=== PATIENT | male | born 1970 | race Caucasian/White ===

== ENCOUNTER 2019-04-22 04:27 | Inpatient (IN) | payer BC ==
[2019-04-22 06:11] LABS: Troponin I 0.235 ng/mL (< 0.028)
[2019-04-22] MEDS ORDERED: Aspirin 81 mg Enteric Coated Tablet PO SCH (09:00)
[2019-04-22 10:30] LABS: INR-International Normal Ratio 1.1; PTT 32.8 SEC (22.9-36.1); Prothrombin Time 14.5 SEC (12.0-14.7)
[2019-04-22] MEDS ORDERED: Ondansetron ODT 4 MG TAB PO PRN (11:11)
[2019-04-22] MEDS ORDERED: Ondansetron PF 4 MG/2 ML Vial IVP PRN (11:11)
--- NOTE | 2019-04-22 11:11 | HP ---
PRIMARY CARE PHYSICIAN: Viktoriya Perez DO CHIEF COMPLAINT: Chest pain. HISTORY OF PRESENT ILLNESS: Mr. Stone is a pleasant 48-year-old man with a past medical history of hypertension and heart murmur, who had presented to an outside [place] ER earlier this morning, after he experienced chest pain and palpitations that had started around 1 a.m. this morning and had woke him about of a deep sleep. He states that the pain was most severe in the substernal area and had not changed with movement or activity. He was seen in the [place] ER and was found to be in atrial flutter with RVR and rates in the 120s to 130s. Therefore, he was given two doses of IV metoprolol 5 mg for a total of 10 mg, aspirin 324 mg, and nitroglycerin sublingual 0.4 mg. He states that once he had received this regimen, he had a rapid pain relief and his heart rate improved to about 100 and then converted to a sinus rhythm with PVCs. He was later transferred to [facility], where he had denied any fever, chills, any headache, blurred vision, dizziness, any chest pain, palpitation, shortness of breath, abdominal pain, nausea, or vomiting. He had remained in sinus rhythm and even transitioned to sinus bradycardia with rates in the 50s. He had otherwise denied any further symptoms at that time. His CHADS-VASc score was zero. Therefore, he was not started on any anticoagulation at this time. With his recent history of a heart murmur, an echocardiogram was ordered and pending at this time. His portable chest x-ray was found to be unremarkable. His heart enzymes were also found to be trending up and his latest 0.530; however, the patient remains asymptomatic at this time. REVIEW OF SYSTEMS: All other systems reviewed and found to be negative unless mentioned in HPI. PAST MEDICAL HISTORY: Heart murmur and hypertension; however, not on any home medications. PAST SURGICAL HISTORY: Endoscopy. PSYCHIATRIC HISTORY: None. SOCIAL HISTORY: The patient drinks 3 to 5 days a week, 1 to 2 drinks per day; however, denies any illicit drug use or tobacco use. KNOWN ALLERGIES: No known drug allergies. CURRENT HOME MEDICATIONS: None. PHYSICAL EXAMINATION: VITAL SIGNS: BP 127/90, pulse 52, respirations 18, temperature 98.4 degrees, and O2 saturation 96% on room air. GENERAL: The patient is awake, alert, and oriented x3. He is currently lying comfortably in bed and in no acute distress at this time. HEENT: Atraumatic and normocephalic. Pupils are round and reactive to light. Extraocular muscles intact. Moist mucous membranes noted. NECK: Soft and supple. Trachea midline. CARDIOVASCULAR: Positive S1 and S2. Regular rate and rhythm. A 2/6 murmur auscultated. RESPIRATORY: Clear to auscultation bilaterally. No wheezes, rales, or rhonchi. ABDOMEN: Soft and nontender. Bowel sounds present. MUSCULOSKELETAL: Moves all extremities equal. Pedal and radial pulses 2+ bilaterally. No edema noted. NEUROLOGIC: Cranial nerves 2 through 12 grossly intact. No focal deficits noted. Speech intact and normal. Gait not assessed. Strength 5+ bilaterally. SKIN: Warm, dry, and intact. No rashes. No ulceration noted. PSYCHIATRIC: Good mood and affect. LABORATORY DATA: WBC 8.0, RBC 4.44, hemoglobin 13.8, and platelet 231. Sodium 140, potassium 3.5, anion gap 15, BUN 18, creatinine 1.24, estimated GFR 62, and glucose 143. Creatine kinase 251; CK-MB 3.4; troponin 0.073, 0.235, and 0.530; and BNP 369.4. Urinalysis unremarkable. Urine drug screen, none detectable. DIAGNOSTIC IMAGING: Portable chest x-ray showed no acute cardiopulmonary process. ASSESSMENT AND PLAN: 1. Atrial flutter with rapid ventricular response. The patient converted to sinus rhythm after 2 doses of IV metoprolol 5 mg. He is also asymptomatic at this time. Cardiology Services, Dr. Nick is consulted for further evaluation. He will remain on telemonitoring. 2. Non-ST elevation myocardial infarction. The patient is currently asymptomatic at this time; however, his cardiac enzymes are trending up with the latest 0.530. He was treated with a full dose aspirin and sublingual nitroglycerin. He will also be started on statin therapy, Cardiology Services will be consulted for further evaluation and an echocardiogram is pending at this time. 3. History of heart murmur, currently stable at this time and at baseline. We will await echocardiogram for any further changes. 4. Deep venous thrombosis and gastrointestinal prophylaxis. 5. Code status. Full code. 6. Disposition pending further workup and clinical findings. Job ID: [id number]
[2019-04-22] MEDS ORDERED: Nitroglycerin 0.4 MG TAB 1 EACH PO PRN (11:12)
--- NOTE | 2019-04-22 11:53 | EKG ---
Test Reason : CHEST PAIN Blood Pressure : / mmHG Vent. Rate : 058 BPM Atrial Rate : 058 BPM P-R Int : 198 ms QRS Dur : 102 ms QT Int : 430 ms P-R-T Axes : 025 -35 096 degrees QTc Int : 422 ms Sinus bradycardia with Premature atrial complexes with Abberant conduction Left axis deviation Abnormal QRS-T angle, consider primary T wave abnormality Abnormal ECG Confirmed by ELLIOTT BRUNO M.D. ([id number]), associate entertainment editor MARILIA BOYKIN ([id number]) on 04/22/2019 11:52:37 AM Referred By: Confirmed By:ELLIOTT BRUNO M.D.
[2019-04-22] MEDS ORDERED: Communication Order-Pharmacy FS SCH (14:45)
[2019-04-22 14:53] LABS: CKMB 7.9 ng/mL (0-6.6)
--- NOTE | 2019-04-22 14:58 | CON ---
DATE OF CONSULTATION: REASON FOR CONSULTATION: Elevated troponin and SVT versus A flutter. HISTORY OF PRESENT ILLNESS: Mr. Stone is a 48-year-old gentleman with no past medical history who recently presented with acute onset chest pain. It woke him from sleep. It lasted for over an hour. He had neck and jaw radiation. He presented to the emergency room, where he was found to be in A flutter versus SVT. Once he converted, his symptoms improved. His troponin was elevated at 0.5. He has no previous history of underlying coronary artery disease. He has no previous history of hypertension, diabetes or hyperlipidemia. Based on his history though, he does appear to have severe obstructive sleep apnea. PAST MEDICAL HISTORY: As above. PAST SURGICAL HISTORY: None. SOCIAL HISTORY: Positive alcohol use. ALLERGIES: NONE. HOME MEDICATIONS: None. REVIEW OF SYMPTOMS: Ten-point review of systems is reviewed and as above, otherwise negative. PHYSICAL EXAMINATION: GENERAL: Patient is a pleasant male who is in no acute distress. The patient appears their stated age. He is obese. VITAL SIGNS: Blood pressure 140/78, pulse 55, temperature 97.9. NEUROLOGIC: The patient is alert and oriented x3 with no focal neurologic deficits. HEENT: Sclerae without icterus. Mouth has moist mucous membranes with normal pallor. NECK: No JVD. Carotid upstroke brisk. No bruits bilaterally. LUNGS: Clear to auscultation with unlabored respirations. BACK: No scoliosis or kyphosis. CARDIAC: Regular rate and rhythm with normal S1 and S2. No S3 or S4 noted. No significant rubs, murmurs, thrills, or gallops noted throughout the precordium. PMI is not displaced. There is no parasternal heave. ABDOMEN: Soft, nontender, nondistended. No peritoneal signs present. No hepatosplenomegaly. No abnormal striae. EXTREMITIES: 2+ femoral and 2+ dorsalis pedis pulses. No cyanosis, clubbing, or edema. SKIN: No gross abnormalities. PERTINENT LABORATORY DATA: Troponin 0.5, TSH 0.9, hemoglobin 13.8, hematocrit 41.2. BNP of 369. Creatinine 1.24. Sodium 3.5. EKG: Normal sinus rhythm with nonspecific ST-T wave changes. IMPRESSION: 1. Elevated troponin. 2. Chest pain. 3. Atrial flutter versus supraventricular tachycardia. RECOMMENDATIONS: Mr. Stone's symptoms are strongly suggestive of unstable angina, although symptoms are likely related to recent supraventricular tachycardia. His daughter does state that they do walk 2-4 miles 3 times a week and does get chest pressure noted at the end of their walk. He takes Tums before and after for some relief. Based on his history, I would recommend coronary angio with possible PCI. I discussed procedure in full detail Mr. Stone. His daughter was present during discussion. Risks included, but not limited to the following: I discussed the procedure in full detail with the patient. The risks of the procedure were also discussed. The risks of the procedure include but are not limited to the following: , stroke, PA, need for emergency surgery, loss of limb, bleeding, and infection, as well as a reaction to the dye causing kidney failure and needing long-term dialysis. I also discussed the risks of PCI to include all of the above including coronary dissection and perforation in addition to acute stent thrombosis and restenosis. All questions about the procedure were answered. Given the above, the patient agreed to proceed with coronary angiography and possible PCI. All questions answered. Given the above patient agreed to proceed with the above procedure. We will proceed with drug coated stent if needed, no contraindications, after discussing drug coated versus nondrug coated stent placement. We will also consult with EP for further recommendations. Job ID: [id number]
[2019-04-22] MEDS: Atorvastatin Calcium 40 MG TAB PO SCH (19:56)
[2019-04-22] MEDS: Acetaminophen 325 MG TAB PO PRN (19:56)
[2019-04-23 05:58] LABS: #Eosinphils 0.4 thou/uL (0.0-0.7); #Lymphocytes 1.9 thou/uL (1.20-3.40); #Monocytes 0.6 thou/uL (0.11-0.59); #Neutrophils 4.8 thou/uL (1.40-6.50); %Basophils 0.6 % (0.0-1.0); %Eosinophils 4.7 % (0.0-10.0); %Lymphocytes 24.8 % (21.0-51.0); %Neutrophils 61.9 % (42.0-75.0); Hemoglobin 13.9 g/dL (14.0-18.0); Mean Corpuscular HGB CONC 34.6 g/dL (32.0-36.0); Mean Corpuscular Hemoglobin 32.9 pg (27.0-31.0); Mean Corpuscular Volume 95.1 fL (78.0-98.0); Mean Platelet Volume 7.7 fL (7.4-10.4); Platelet Count 231 thou/uL (130-400); RBC Distribution Width 11.5 % (11.5-14.5); Red Blood Cell (RBC) Count 4.21 mill/uL (4.70-6.10); White Blood Cell (WBC) Count 7.8 thou/uL (4.8-10.8)
[2019-04-23 06:03] LABS: INR-International Normal Ratio 1.1; PTT 30.5 SEC (22.9-36.1); Prothrombin Time 13.7 SEC (12.0-14.7)
[2019-04-23 06:15] LABS: Anion Gap 12 mmol/L (10-20); BUN (Urea Nitrogen) 17 mg/dL (8.9-20.6); Calc. Creatinine Clearance 134 mL/min (70-130); Calcium 8.7 mg/dL (7.8-10.44); Carbon Dioxide 25 mmol/L (22-29); Cardiac Risk 4.6 (Less than 4.5); Chloride 106 mmol/L (98-107); Cholesterol 170 mg/dl (< 200 Desired); Estimated GFR-MDRD 72; Glucose 117 mg/dL (70-105); HDL Cholesterol 37 mg/dL (>60 Neg Risk); LDL Cholesterol, Calculated 107 mg/dL; Potassium 4.2 mmol/L (3.5-5.1); Sodium 139 mmol/L (136-145); Triglycerides 129 mg/dL (Less than 150)
[2019-04-23] MEDS: Aspirin 81 mg Enteric Coated Tablet PO SCH (08:58)
[2019-04-23] MEDS ORDERED: Enoxaparin Sodium 40 MG/0.4 ML SYRINGE SC SCH (09:00)
--- NOTE | 2019-04-23 16:59 | PDOC.HOSPP ---
- Subjective Encounter Date: 04/23/19 Encounter Time: 16:57 Subjective: Patient lying in bed, he reports no complaints, denies chest pain, shortness of breath or abdominal pain. No events over night - Objective Vital Signs & Weight: Vital Signs (12 hours) Temp Pulse Resp BP Pulse Ox 04/23/19 15:52 98.0 F 68 20 142/79 H 95 04/23/19 11:41 98.3 F 65 16 128/75 95 04/23/19 07:52 97.6 F 52 L 20 139/89 95 Weight Weight 256 lb 12.8 oz I&O: 04/22/19 04/23/19 04/24/19 06:59 06:59 06:59 Intake Total 500 Output Total 600 Balance -100 Result Diagrams: 04/23/19 05:45 04/23/19 05:45 Radiology Reviewed by me: Yes ROS - Review of Systems All other systems reviewed; all pertinent +/- noted in HPI/Subj - Medication Medications: Active Medications Generic Name Dose Route Start Last Admin Trade Name Cory PRN Reason Stop Dose Admin Acetaminophen 650 mg 04/22/19 11:11 04/22/19 19:56 Tylenol PO 650 mg Q4H PRN Administration Headache/Fever/Mild Pain (1-3) Aspirin 81 mg 04/23/19 09:00 04/23/19 08:58 Ecotrin PO 81 mg DAILY MERLENE Administration Atorvastatin Calcium 40 mg 04/22/19 21:00 04/22/19 19:56 Lipitor PO 40 mg HS MERLENE Administration Enoxaparin Sodium 40 mg 04/23/19 09:00 04/23/19 08:58 Lovenox SC 04/23/19 21:00 40 mg 0900 MERLENE Administration - Exam NAD, awake alert Eye: PERRL ENT: normocephalic atraumatic, no oropharyngeal lesions Neck: supple Heart: RRR, no gallops, normal peripheral pulses, murmur present Respiratory: CTAB, no wheezes Gastrointestinal: soft, normal bowel sounds Extremities: no cyanosis, no clubbing Skin: normal turgor, no rashes Neurological: CN's grossly intact, no focal deficits Musculoskeletal: normal tone, no muscle wasting Psychiatric: normal affect, A&O x 3 Hosp A/P (1) NSTEMI (non-ST elevated myocardial infarction) Code(s): I21.4 - NON-ST ELEVATION (NSTEMI) MYOCARDIAL INFARCTION Status: Acute (2) Atrial flutter Code(s): I48.92 - UNSPECIFIED ATRIAL FLUTTER Status: Acute - Plan Cardiology following and plan for heart cath 04/24/2019 Continue medical management Patient asymptomatic at this time Possible discharge after heart cath
[2019-04-23] MEDS: Atorvastatin Calcium 40 MG TAB PO SCH (20:05)
[2019-04-23] MEDS: Acetaminophen 325 MG TAB PO PRN (20:07)
[2019-04-24 05:25] LABS: #Basophils 0.1 thou/uL (0.0-0.2); #Eosinphils 0.4 thou/uL (0.0-0.7); #Lymphocytes 1.8 thou/uL (1.20-3.40); #Monocytes 0.6 thou/uL (0.11-0.59); #Neutrophils 3.5 thou/uL (1.40-6.50); %Basophils 1.2 % (0.0-1.0); %Eosinophils 5.9 % (0.0-10.0); %Lymphocytes 28.6 % (21.0-51.0); %Monocytes 9.4 % (0.0-10.0); %Neutrophils 54.9 % (42.0-75.0); Mean Corpuscular HGB CONC 33.8 g/dL (32.0-36.0); Mean Corpuscular Hemoglobin 32.5 pg (27.0-31.0); Mean Corpuscular Volume 96.1 fL (78.0-98.0); Mean Platelet Volume 7.5 fL (7.4-10.4); Platelet Count 211 thou/uL (130-400); RBC Distribution Width 11.4 % (11.5-14.5); White Blood Cell (WBC) Count 6.4 thou/uL (4.8-10.8)
[2019-04-24] MEDS: Aspirin 81 mg Enteric Coated Tablet PO SCH (05:29)
[2019-04-24 05:48] LABS: Anion Gap 11 mmol/L (10-20); BUN (Urea Nitrogen) 17 mg/dL (8.9-20.6); Calc. Creatinine Clearance 144 mL/min (70-130); Calcium 8.3 mg/dL (7.8-10.44); Carbon Dioxide 26 mmol/L (22-29); Chloride 105 mmol/L (98-107); Estimated GFR-MDRD 78; Glucose 112 mg/dL (70-105); Potassium 4.2 mmol/L (3.5-5.1); Sodium 138 mmol/L (136-145)
[2019-04-24] MEDS ORDERED: Sodium Chloride 0.9% 1,000 ML IV SCH ×2 (06:00→10:30)
[2019-04-24] MEDS ORDERED: Lidocaine 1% (PF) 30 ML VIAL ONE ×2 (09:03→09:31)
[2019-04-24] MEDS ORDERED: Midazolam HCl 2 mg/2 ml Vial ONE (09:41)
[2019-04-24] MEDS ORDERED: Fentanyl 100 MCG/2 ML VIAL ONE (09:42)
[2019-04-24] MEDS ORDERED: Nitroglycerin 0.4 MG TAB (25 Tab Bottle) SL PRN (10:19)
[2019-04-24] MEDS ORDERED: Acetaminophen/Codeine 30-300mg Tablet PO PRN ×2 (10:19)
[2019-04-24] MEDS ORDERED: Sodium Chloride 0.9% 200 ML IV PRN (10:19)
--- NOTE | 2019-04-24 14:12 | PDOC.HOSPP ---
- Subjective Encounter Date: 04/24/19 Encounter Time: 13:30 Subjective: Patient seen and examined for new onset A flutter. No CP/SOB. No new complaints. No overnight events - Objective Vital Signs & Weight: Vital Signs (12 hours) Temp Pulse Resp BP BP Pulse Ox 04/24/19 11:38 97.4 F L 60 16 153/94 H 97 04/24/19 10:35 60 18 144/95 H 04/24/19 07:57 97.4 F L 60 15 140/97 H 95 04/24/19 05:30 97.5 F L 62 16 134/94 H 97 Weight Weight 256 lb 12.8 oz I&O: 04/23/19 04/24/19 04/25/19 06:59 06:59 06:59 Intake Total 500 1490 Output Total 600 Balance -100 1490 Result Diagrams: 04/24/19 05:16 04/24/19 05:16 EKG Reviewed by me: Yes (Tele SR) ROS - Review of Systems Respiratory: denies: cough, dry, shortness of breath, hemoptysis, SOB with excertion, pleuritic pain, sputum, wheezing, other Cardiovascular: denies: chest pain, palpitations, orthopnea, paroxysmal noc. dyspnea, edema, light headedness, other Gastrointestinal: denies: nausea, vomitting, abdominal pain, diarrhea, constipation, melena, hematochezia, other - Medication Medications: Active Medications Generic Name Dose Route Start Last Admin Trade Name Freq PRN Reason Stop Dose Admin Acetaminophen 650 mg 04/22/19 11:11 04/23/19 20:07 Tylenol PO 650 mg Q4H PRN Administration Headache/Fever/Mild Pain (1-3) Aspirin 81 mg 04/23/19 09:00 04/24/19 05:29 Ecotrin PO 81 mg DAILY MERLENE Administration Atorvastatin Calcium 40 mg 04/22/19 21:00 04/23/19 20:05 Lipitor PO 40 mg HS MERLENE Administration Sodium Chloride 1,000 mls @ 125 mls/hr 04/24/19 10:30 04/24/19 12:20 Normal Saline 0.9% IV 04/24/19 14:31 Not Given .Q8H MERLENE - Exam NAD Heart: RRR, no rubs, murmur present (4/6 GOGO Aortic area) Respiratory: CTAB, no rales Gastrointestinal: soft, non-tender, normal bowel sounds Extremities: no edema Hosp A/P (1) Atrial flutter with rapid ventricular response Code(s): I48.92 - UNSPECIFIED ATRIAL FLUTTER Status: Acute (2) Severe aortic valve stenosis Code(s): I35.0 - NONRHEUMATIC AORTIC (VALVE) STENOSIS Status: Acute (3) Type 2 myocardial infarction Code(s): I21.A1 - MYOCARDIAL INFARCTION TYPE 2 Status: Acute (4) Obesity (BMI 30-39.9) Code(s): E66.9 - OBESITY, UNSPECIFIED Status: Chronic (5) Normal coronary arteries Code(s): Z03.89 - ENCNTR FOR OBS FOR OTH SUSPECTED DISEASES AND COND RULED OUT Status: Chronic - Plan plan discussed w/ family s/p Cath - normal coronaries Aortic Valve area 0.7 Await Cardiovascular input Cont other meds as below
[2019-04-24 16:58] LABS: CKMB 2.7 ng/mL (0-6.6)
[2019-04-25] MEDS ORDERED: Ketamine 50 MG/ML (10ML VIAL) ONE (07:26)
[2019-04-25] MEDS ORDERED: PROPOFOL 20 ML ONE (07:27)
[2019-04-25] MEDS: Aspirin 81 mg Enteric Coated Tablet PO SCH (08:26)
--- NOTE | 2019-04-25 13:03 | OP ---
DATE OF PROCEDURE: 04/25/2019 PREOPERATIVE DIAGNOSIS: Aortic stenosis. POSTOPERATIVE DIAGNOSIS: Severe aortic stenosis. PROCEDURE PERFORMED: Transesophageal echocardiography. DESCRIPTION OF PROCEDURE: The patient was consented for the procedure. I discussed in full detail with Valarie Stone. Propofol used for conscious sedation. FINDINGS: Aortic valve was well visualized. There was heavy calcification present. The valve appears to be bicuspid. Aortic valve area by planimetry was estimated at 0.7 to 0.9. There appeared to be moderate left ventricular hypertrophy. This appeared concentric. IMPRESSION: Severe aortic stenosis. Job ID: [id number]
--- NOTE | 2019-04-25 14:51 | CT ---
CT CHEST WITH AND WITHOUT CONTRAST CLINICAL INDICATION: Chest pain. Aortic stenosis. COMPARISON: None FINDINGS: Aorta: There are calcifications involving the aortic valve. The thoracic aorta is normal in caliber w ithout evidence of an aortic dissection. Minimal vascular calcifications are seen in the coronary arteries. Lungs: Clear without evidence of consolidation or pleural effusion. Mediastinum: There is no evidence of lymphadenopathy. Thyroid gland: Normal where visualized. Osseous structures: Mild degenerative changes are seen in the spine. There is a mild wedge-shaped the of the T12 vertebral body of indeterminate age. Schmorl's nodes are seen in several thoracic vertebral bodies. Chest wall: No abnormality visualized. Upper abdomen: Within normal limits for phase of imaging. IMPRESSION: 1. Calcifications of the aortic valve. 2. The thoracic aorta is normal in caliber without evidence of an aortic dissection.
--- NOTE | 2019-04-25 15:50 | CON ---
DATE OF CONSULTATION: 04/25/2019 REASON FOR CONSULTATION: Evaluate the patient with aortic stenosis for aortic valve replacement. HISTORY OF PRESENT ILLNESS: Mr. Stone is a 48-year-old gentleman, who presented in atrial fibrillation/flutter with chest pain. His troponin was positive at the time of admission with a peak of 0.57. Once he converted back to sinus, his chest pain went away. He has been cathed and has clean coronary arteries. He has also had an echocardiogram performed, which shows an aortic valve area of 0.7. The peak to peak gradient is 102, mean gradient is 376. Peak velocity of 507. I have been asked to see and discuss aortic valve replacement. PAST MEDICAL HISTORY: 1. Known longstanding cardiac murmur. 2. Hypertension. PAST SURGICAL HISTORY: None. CURRENT MEDICATIONS: None. ALLERGIES: NONE. SOCIAL HISTORY: He is . He lives with his daughter in [place]. 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 REVIEW OF SYSTEMS: A 10-point review of systems is performed and is negative except as above. PHYSICAL EXAMINATION: GENERAL: This is a well-developed, well-nourished man, resting comfortably on the telemetry unit. VITAL SIGNS: His height is 5 feet 10 inches, weight is 265 pounds, BSA is 2.44, temperature is 98.1, pulse is 60 and regular. His rhythm is sinus. Blood pressure is 138/87. HEENT: Sclerae are nonicteric. Pupils are equal and round bilaterally. NECK: Supple without adenopathy. I cannot auscultate a bruit in his neck. CHEST: Clear bilaterally. HEART: Rhythm is regular. His murmur is located really throughout the precordium. It is mid systolic murmur. ABDOMEN: Soft and nontender. EXTREMITIES: No edema. VASCULAR: Palpable carotid, radial, femoral, and dorsalis pedis pulses bilaterally. VENOUS: He has small venous varicosities below the knee. PSYCHIATRIC: He is awake, alert, and oriented to person, place, and time. LABORATORY DATA: Of note, creatinine is 1.01, potassium is 4.2. Hemoglobin is 14.0, platelet count is 211,000. PT/INR is 1.1. ASSESSMENT PLAN: This is a very pleasant 48-year-old gentleman with severe aortic stenosis. We have discussed aortic valve replacement. He is agreeable to proceed. We have outlined valve choices being either bioprosthetic or mechanical valve. Risks, positives, and negatives to valve replacement have been discussed with him in detail. He wishes to have a mechanical valve. He understands that this will require lifelong coumadinization and vigilance on his part in taking the Coumadin along with following an appropriate diet and having levels monitored. He is agreeable to all these procedures. We will plan for surgery on Wednesday. Job ID: [id number]
[2019-04-25] MEDS ORDERED: PROPOFOL 200 MG/20 ML VIAL ONE (17:06)
--- NOTE | 2019-04-25 19:47 | PDOC.HOSPP ---
- Subjective Encounter Date: 04/25/19 Encounter Time: 19:46 Subjective: Patient seen and examined for Severe . No CP/SOB or syncope. No new complaints. No overnight events - Objective Vital Signs & Weight: Vital Signs (12 hours) Temp Pulse Resp BP BP Pulse Ox 04/25/19 16:54 97.9 F 60 16 141/88 H 97 04/25/19 15:30 98.0 F 62 20 132/78 95 04/25/19 12:04 98.1 F 61 20 138/87 95 04/25/19 08:23 97.8 F 69 16 142/84 H 95 04/25/19 08:22 94 L Weight Weight 265 lb 8 oz I&O: 04/24/19 04/25/19 04/26/19 06:59 06:59 06:59 Intake Total 1490 960 720 Balance 1490 960 720 Result Diagrams: 04/24/19 05:16 04/24/19 05:16 EKG Reviewed by me: Yes (Tele SR) Hospitalist ROS - Review of Systems Cardiovascular: denies: chest pain, palpitations, orthopnea, paroxysmal noc. dyspnea, edema, light headedness, other Gastrointestinal: denies: nausea, vomitting, abdominal pain, diarrhea, constipation, melena, hematochezia, other - Medication Medications: Active Medications Generic Name Dose Route Start Last Admin Trade Name Freq PRN Reason Stop Dose Admin Acetaminophen 650 mg 04/22/19 11:11 04/23/19 20:07 Tylenol PO 650 mg Q4H PRN Administration Headache/Fever/Mild Pain (1-3) Aspirin 81 mg 04/23/19 09:00 04/25/19 08:26 Ecotrin PO Not Given DAILY MERLENE Sodium Chloride 10 ml 04/24/19 21:00 04/25/19 08:27 Flush - Normal Saline IVF 10 ml Q12HR MERLENE Administration - Exam General Appearance: NAD Heart: RRR, no rubs, murmur present Respiratory: CTAB, no rales Gastrointestinal: soft, non-tender, normal bowel sounds Extremities: no edema Hosp A/P (1) Atrial flutter with rapid ventricular response Code(s): I48.92 - UNSPECIFIED ATRIAL FLUTTER Status: Acute (2) Severe aortic valve stenosis Code(s): I35.0 - NONRHEUMATIC AORTIC (VALVE) STENOSIS Status: Acute (3) Type 2 myocardial infarction Code(s): I21.A1 - MYOCARDIAL INFARCTION TYPE 2 Status: Acute (4) Obesity (BMI 30-39.9) Code(s): E66.9 - OBESITY, UNSPECIFIED Status: Chronic (5) Normal coronary arteries Code(s): Z03.89 - ENCNTR FOR OBS FOR OTH SUSPECTED DISEASES AND COND RULED OUT Status: Chronic - Plan AVR later this week Cont to monitor SR on tele Cont other meds as below
[2019-04-26] MEDS: Aspirin 81 mg Enteric Coated Tablet PO SCH (08:54)
--- NOTE | 2019-04-26 18:26 | PRG ---
DATE OF SERVICE: 04/26/2019 SUBJECTIVE: Mr. Stone is doing well. No current complaints. He is scheduled for aortic valve replacement on 04/28/2019. OBJECTIVE: GENERAL: Patient is a pleasant male, who is in no acute distress. The patient appears their stated age. VITAL SIGNS: Blood pressure 140/82, pulse 58, temperature 98. NEUROLOGIC: The patient is alert and oriented x3 with no focal neurologic deficits. HEENT: Sclerae without icterus. Mouth has moist mucous membranes with normal pallor. NECK: No JVD. Carotid upstroke brisk. No bruits bilaterally. LUNGS: Clear to auscultation with unlabored respirations. BACK: No scoliosis or kyphosis. CARDIAC: Regular rate and rhythm with 2/6 systolic ejection murmur. ABDOMEN: Soft, nontender, nondistended. No peritoneal signs present. No hepatosplenomegaly. No abnormal striae. EXTREMITIES: 2+ femoral and 2+ dorsalis pedis pulses. No cyanosis, clubbing, or edema. SKIN: No gross abnormalities. IMPRESSION: Aortic stenosis. RECOMMENDATIONS: Mr. Stone is scheduled for surgery on 04/28/2019. I would defer beta-iron therapy given bradycardia. Otherwise, I have no further recommendations. Job ID: [id number]
--- NOTE | 2019-04-26 21:59 | PDOC.HOSPP ---
- Subjective Encounter Date: 04/26/19 Encounter Time: 11:00 Subjective: Patient seen and examined for . No new complaints. Overnight events noted - Objective Vital Signs & Weight: Vital Signs (12 hours) Temp Pulse Resp BP BP Pulse Ox 04/26/19 19:45 98.6 F 58 L 18 157/90 H 94 L 04/26/19 16:00 98.0 F 58 L 18 140/82 98 04/26/19 12:36 97.8 F 61 18 135/84 98 04/26/19 12:00 97.8 F 61 16 135/85 98 04/26/19 11:45 96 04/26/19 11:41 97 Weight Weight 257 lb 12.8 oz I&O: 04/25/19 04/26/19 04/27/19 06:59 06:59 06:59 Intake Total 960 1620 Balance 960 1620 Result Diagrams: 04/24/19 05:16 04/24/19 05:16 EKG Reviewed by me: Yes (Tele SB) Hospitalist ROS - Review of Systems Respiratory: denies: cough, dry, shortness of breath, hemoptysis, SOB with excertion, pleuritic pain, sputum, wheezing, other Cardiovascular: denies: chest pain, palpitations, orthopnea, paroxysmal noc. dyspnea, edema, light headedness, other - Medication Medications: Active Medications Generic Name Dose Route Start Last Admin Trade Name Freq PRN Reason Stop Dose Admin Acetaminophen 650 mg 04/22/19 11:11 04/23/19 20:07 Tylenol PO 650 mg Q4H PRN Administration Headache/Fever/Mild Pain (1-3) Aspirin 81 mg 04/23/19 09:00 04/26/19 08:54 Ecotrin PO 81 mg DAILY MERLENE Administration Sodium Chloride 10 ml 04/24/19 21:00 04/26/19 20:15 Flush - Normal Saline IVF 10 ml Q12HR MERLENE Administration - Exam General Appearance: NAD Neck: no JVD Extremities: no edema Neurological: no new deficit Psychiatric: normal affect, A&O x 3 Hosp A/P (1) Atrial flutter with rapid ventricular response Code(s): I48.92 - UNSPECIFIED ATRIAL FLUTTER Status: Acute (2) Severe aortic valve stenosis Code(s): I35.0 - NONRHEUMATIC AORTIC (VALVE) STENOSIS Status: Acute (3) Type 2 myocardial infarction Code(s): I21.A1 - MYOCARDIAL INFARCTION TYPE 2 Status: Acute (4) Obesity (BMI 30-39.9) Code(s): E66.9 - OBESITY, UNSPECIFIED Status: Chronic (5) Normal coronary arteries Code(s): Z03.89 - ENCNTR FOR OBS FOR OTH SUSPECTED DISEASES AND COND RULED OUT Status: Chronic (6) ARIANNA (obstructive sleep apnea) Code(s): G47.33 - OBSTRUCTIVE SLEEP APNEA (ADULT) (PEDIATRIC) Status: Chronic - Plan AVR later this week Cont to monitor Cont other meds as below
[2019-04-27] MEDS ORDERED: Communication Order-Pharmacy FS ONE (06:20)
--- NOTE | 2019-04-27 06:54 | PDOC.CPN ---
- Subjective Date: 04/27/19 - Review of Systems General: denies: fever/chills, weight/appetite/sleep changes, night sweats, fatigue Respiratory: denies: cough, congestion, shortness of breath, exercise intolerance Cardiovascular: denies: chest pain, palpitation, edema, paroxysmal nocturnal dyspnea, orthopnea Gastrointestinal: denies: nausea, vomiting, diarrhea, constipation, abd pain, GI bleeding - Objective Allergies/Adverse Reactions: Allergies Allergy/AdvReac Type Severity Reaction Status Date / Time No Known Allergies Allergy Unverified 04/22/19 06:50 Visit Medications: Current Medications Acetaminophen (Tylenol) 650 mg PO Q4H PRN PRN Reason: Headache/Fever/Mild Pain (1-3) Stop: 04/28/19 08:59 Last Admin: 04/23/19 20:07 Dose: 650 mg Acetaminophen/Codeine Phosphate (Tylenol #3) 1 tab PO Q4H PRN PRN Reason: Mild Pain (1-3) Stop: 04/28/19 08:59 Acetaminophen/Codeine Phosphate (Tylenol #3) 2 tab PO Q4H PRN PRN Reason: Moderate Pain (4-6) Stop: 04/28/19 08:59 Aspirin (Ecotrin) 81 mg PO DAILY MERLENE Stop: 04/28/19 08:59 Last Admin: 04/26/19 08:54 Dose: 81 mg Cefazolin Sodium/Dextrose 2 gm (/ Device) 50 mls @ 100 mls/hr IVPB ONCALL-OR MERLENE Stop: 04/28/19 20:00 Vancomycin HCl 2 gm/ Sodium (Chloride) 500 mls @ 250 mls/hr IVPB ONCALL-OR MERLENE Stop: 04/28/19 20:00 Nitroglycerin (Nitrostat) 0.4 mg SL Q5MIN PRN PRN Reason: Chest Pain Stop: 04/28/19 08:59 Ondansetron HCl (Zofran Odt) 4 mg PO Q6H PRN PRN Reason: Nausea/Vomiting Stop: 04/28/19 08:59 Ondansetron HCl (Zofran) 4 mg IVP Q6H PRN PRN Reason: Nausea/Vomiting Stop: 04/28/19 08:59 Sodium Chloride (Flush - Normal Saline) 10 ml IVF Q12HR MERLENE Stop: 04/28/19 08:59 Last Admin: 04/26/19 20:15 Dose: 10 ml Sodium Chloride (Flush - Normal Saline) 10 ml IVF PRN PRN PRN Reason: Saline Flush Stop: 04/28/19 08:59 Vital Signs & Weight: Vital Signs Temp Pulse Resp BP BP Pulse Ox 04/27/19 03:51 97.2 F L 46 L 16 121/79 95 04/26/19 19:45 98.6 F 58 L 18 157/90 H 94 L Weight 257 lb 12.8 oz - Medication Contraindications No Beta Suzie reason: Beta suzie not tolerated (bradycardia) No TAWNY/ARB reason: Treatment not indicated No Statin reason: Treatment not indicated No Antithrombotic reason: Treatment not indicated No Anticoagulant reason: Treatment not indicated - Physical Exam General: alert & oriented x3, appears well, no apparent distress, cachectic, other HEENT: mucus membranes moist, normocephaly, EOMI, jaundice, mucus membranes dry , oral lesions, pallor, PERRL, sinus tenderness, other Cardiac: regular rate and rhythm, audible murmur Lungs: clear to auscultation Neuro: cranial nerve 2-12 intact - Labs Result Diagrams: 04/24/19 05:16 04/24/19 05:16 Troponin/CKMB CK-MB (CK-2) 2.7 ng/mL (0-6.6) 04/24/19 16:08 Troponin I 0.243 ng/mL (< 0.028) H 04/24/19 16:08 - Problem (1) ARIANNA (obstructive sleep apnea) Code(s): G47.33 - OBSTRUCTIVE SLEEP APNEA (ADULT) (PEDIATRIC) Assessment and Plan: OP TAVERA (2) Severe aortic valve stenosis Code(s): I35.0 - NONRHEUMATIC AORTIC (VALVE) STENOSIS Assessment and Plan: AVR on 04/28 (3) Type 2 myocardial infarction Code(s): I21.A1 - MYOCARDIAL INFARCTION TYPE 2 (4) Obesity (BMI 30-39.9) Code(s): E66.9 - OBESITY, UNSPECIFIED
[2019-04-27] MEDS: Aspirin 81 mg Enteric Coated Tablet PO SCH (08:49)
--- NOTE | 2019-04-27 10:25 | PRG ---
DATE OF SERVICE: 04/27/2019 SUBJECTIVE: Mr. Stone is doing well, no complaints. OBJECTIVE: VITAL SIGNS: Blood pressure 145/89, pulse 63, and temperature 97.3. LUNGS: Clear to auscultation. HEART: Regular rate and rhythm. ABDOMEN: Soft, nontender, and nondistended. EXTREMITIES: No edema. IMPRESSION: Severe aortic stenosis. RECOMMENDATIONS: 1. Plan on aortic valve replacement tomorrow. 2. No beta-iron therapy due to bradycardia. 3. Recent episode of SVT, which likely is caused by severe aortic stenosis. Job ID: [id number]
--- NOTE | 2019-04-27 15:00 | PDOC.HOSPP ---
- Subjective Encounter Date: 04/27/19 Encounter Time: 14:59 Subjective: Patient seen and examined for . No new complaints. No overnight events - Objective Vital Signs & Weight: Vital Signs (12 hours) Temp Pulse Resp BP BP Pulse Ox 04/27/19 11:36 97.6 F 66 16 163/97 H 155/92 H 95 04/27/19 07:40 96 04/27/19 07:11 97.3 F L 63 16 144/89 H 95 04/27/19 03:51 97.2 F L 46 L 16 121/79 95 Weight Weight 257 lb 12.8 oz I&O: 04/26/19 04/27/19 04/28/19 06:59 06:59 06:59 Intake Total 1620 Balance 1620 Result Diagrams: 04/24/19 05:16 04/24/19 05:16 Hospitalist ROS - Review of Systems Cardiovascular: denies: chest pain, palpitations, orthopnea, paroxysmal noc. dyspnea, edema, light headedness, other Gastrointestinal: denies: nausea, vomitting, abdominal pain, diarrhea, constipation, melena, hematochezia, other - Medication Medications: Active Medications Generic Name Dose Route Start Last Admin Trade Name Freq PRN Reason Stop Dose Admin Acetaminophen 650 mg 04/22/19 11:11 04/23/19 20:07 Tylenol PO 04/28/19 08:59 650 mg Q4H PRN Administration Headache/Fever/Mild Pain (1-3) Aspirin 81 mg 04/23/19 09:00 04/27/19 08:49 Ecotrin PO 04/28/19 08:59 81 mg DAILY MERLENE Administration Sodium Chloride 10 ml 04/24/19 21:00 04/27/19 08:50 Flush - Normal Saline IVF 04/28/19 08:59 10 ml Q12HR MERLENE Administration - Exam General Appearance: NAD Neck: no JVD Neurological: no new deficit Psychiatric: normal affect, A&O x 3 Hosp A/P (1) Atrial flutter with rapid ventricular response Code(s): I48.92 - UNSPECIFIED ATRIAL FLUTTER Status: Acute (2) Severe aortic valve stenosis Code(s): I35.0 - NONRHEUMATIC AORTIC (VALVE) STENOSIS Status: Acute (3) Type 2 myocardial infarction Code(s): I21.A1 - MYOCARDIAL INFARCTION TYPE 2 Status: Acute (4) Obesity (BMI 30-39.9) Code(s): E66.9 - OBESITY, UNSPECIFIED Status: Chronic (5) Normal coronary arteries Code(s): Z03.89 - ENCNTR FOR OBS FOR OTH SUSPECTED DISEASES AND COND RULED OUT Status: Chronic (6) ARIANNA (obstructive sleep apnea) Code(s): G47.33 - OBSTRUCTIVE SLEEP APNEA (ADULT) (PEDIATRIC) Status: Chronic - Plan AVR in AM No betablocker due to bradycardia Cont other meds as below
[2019-04-28] MEDS ORDERED: Bupivacaine HCl 0.5%/Epinephrine 1:200,000/PF 30 ml Vial ONE (06:48)
[2019-04-28] MEDS ORDERED: Dexamethasone 4 mg/ml Vial ONE (06:48)
[2019-04-28] MEDS ORDERED: Albumin 5% 0 ML ONE (06:48)
[2019-04-28] MEDS ORDERED: Albumin 25% 0 ML ONE (06:48)
[2019-04-28] MEDS ORDERED: Midazolam HCl 5 mg/5 ml Vial ONE (06:53)
[2019-04-28] MEDS ORDERED: Fentanyl 250 MCG/5 ML VIAL ONE (06:53)
[2019-04-28] MEDS ORDERED: Vecuronium 10 MG VIAL ONE ×2 (06:54→09:11)
[2019-04-28] MEDS ORDERED: Norepinephrine 4 MG/4 ML VIAL ONE ×2 (06:54→09:11)
[2019-04-28] MEDS ORDERED: Dexmedetomidine 200 MCG/2 ML VIAL ONE (06:54)
[2019-04-28] MEDS ORDERED: Heparin 10,000 UNITS/1 ML VIAL 30,000 UNITS in Sodium Chloride 0.9% 1,000 ML FS SCH (07:00)
[2019-04-28] MEDS ORDERED: Midazolam HCl 2 mg/2 ml Vial ONE (07:10)
[2019-04-28] MEDS ORDERED: CEFAZOLIN 2 GM in Premix Bag 1 BAG IVPB SCH (07:30)
[2019-04-28] MEDS ORDERED: Calcium Chloride 1 GM/10 ML Abboject SYRINGE ONE (09:11)
[2019-04-28] MEDS ORDERED: Lidocaine 1% PF 5 ML VIAL ONE (09:11)
[2019-04-28] MEDS ORDERED: PROPOFOL 200 MG/20 ML VIAL ONE (09:11)
[2019-04-28] MEDS ORDERED: Protamine Sulfate 250 MG/25 ML VIAL ONE (09:11)
[2019-04-28] MEDS ORDERED: Thrombin 5000 UNITS/5 ML VIAL ONE (09:11)
[2019-04-28] MEDS ORDERED: Aminocaproic Acid 5 GM/20 ML VIAL ONE ×2 (09:11→10:05)
[2019-04-28] MEDS ORDERED: Heparin 30,000 units/30 ml VIAL ONE (09:11)
[2019-04-28] MEDS ORDERED: Nitroglycerin 50 MG/250 ML BOT ONE (10:05)
[2019-04-28] MEDS ORDERED: Lidocaine 2% PF 100 mg/5 ml Syringe ONE (10:05)
[2019-04-28] MEDS ORDERED: Magnesium 5 GM/10 ML VIAL ONE (10:05)
[2019-04-28] MEDS ORDERED: Potassium Chloride 60 MEQ/30 ML VIAL ONE (10:05)
[2019-04-28] MEDS ORDERED: Sodium Bicarb 50 MEQ/50 ML VIAL ONE (10:05)
[2019-04-28] MEDS ORDERED: Mannitol 12.5 GM/50 ML ONE (10:05)
[2019-04-28] MEDS ORDERED: Digoxin 0.5 MG/2 ML AMP ONE (10:22)
[2019-04-28] MEDS ORDERED: Promethazine HCl 25 MG/ML VIAL IM PRN (11:38)
[2019-04-28] MEDS ORDERED: Acetaminophen 325 MG TAB PO PRN (11:38)
[2019-04-28] MEDS ORDERED: Norepinephrine 8 MG/0.9% NS 250 ML IVPB PRN (11:38)
[2019-04-28] MEDS ORDERED: Nitroglycerin 50 MG/250 ML BOT 250 ML IVPB PRN (11:38)
[2019-04-28] MEDS ORDERED: hydrALAZINE 20 MG/ML VIAL SLOW IVP PRN (11:38)
[2019-04-28] MEDS ORDERED: Morphine 2 MG/ML SYRINGE SLOW IVP PRN (11:38)
[2019-04-28] MEDS ORDERED: Fentanyl 100 MCG/2 ML VIAL SLOW IVP PRN ×2 (11:38)
[2019-04-28] MEDS ORDERED: Potassium Chloride 20 MEQ/100 ML PREMIX BAG IVPB PRN (11:38)
[2019-04-28] MEDS ORDERED: Guaifenesin DM 100-10/5 ML UDCUP PO PRN (11:38)
[2019-04-28] MEDS ORDERED: Bisacodyl 5 MG TAB PO PRN (11:38)
[2019-04-28] MEDS ORDERED: Bisacodyl 10 MG SUPP PR PRN (11:38)
[2019-04-28] MEDS ORDERED: Hetastarch 6% 500 ML 500 ML IVPB PRN (11:38)
[2019-04-28] MEDS ORDERED: Post-Op Insulin Drip Protocol IVPB ONE (11:38)
[2019-04-28] MEDS ORDERED: D5 1/2 NS w/20 mEq KCL 1,000 ML IV SCH (11:38)
[2019-04-28 11:50] LABS: #Eosinphils 0.2 thou/uL (0.0-0.7); #Lymphocytes 1.6 thou/uL (1.20-3.40); #Monocytes 0.9 thou/uL (0.11-0.59); #Neutrophils 14.3 thou/uL (1.40-6.50); %Basophils 0.3 % (0.0-1.0); %Eosinophils 1.1 % (0.0-10.0); %Lymphocytes 9.4 % (21.0-51.0); %Monocytes 5.1 % (0.0-10.0); %Neutrophils 84.3 % (42.0-75.0); Hemoglobin 13.5 g/dL (14.0-18.0); Mean Corpuscular HGB CONC 34.3 g/dL (32.0-36.0); Mean Corpuscular Volume 93.4 fL (78.0-98.0); Mean Platelet Volume 7.7 fL (7.4-10.4); Platelet Count 190 thou/uL (130-400); RBC Distribution Width 11.4 % (11.5-14.5); Red Blood Cell (RBC) Count 4.21 mill/uL (4.70-6.10); White Blood Cell (WBC) Count 16.9 thou/uL (4.8-10.8)
[2019-04-28 12:00] LABS: INR-International Normal Ratio 1.3; Prothrombin Time 16.5 SEC (12.0-14.7)
[2019-04-28 12:01] LABS: PTT 30.8 SEC (22.9-36.1)
[2019-04-28 12:11] LABS: Actual Bicarbonate (HCO3a) 19.8 mEq/L (22-28); Base Excess (BEa) -5.8 mEq/L (-2.0 to +3.0); CO2 Tension 39.3 mmHg (35.0-45.0); Calcium, Ionized 1.09 mmol/L (1.12-1.30); Carboxyhemoglobin (COHb) 1.3 gm% (0.0-3.0); Hemoglobin (Hb) 13.5 g/dL (14.0-18.0); O2 Tension (PaO2) 90.8 mmHg (80.0-100.0); Potassium - ABG Lab 4.36 mmol/L (3.70-5.30); pH, Arterial 7.32 (7.35-7.45)
[2019-04-28 12:12] LABS: Anion Gap 12 mmol/L (10-20); BUN (Urea Nitrogen) 16 mg/dL (8.9-20.6); Calc. Creatinine Clearance 145 mL/min (70-130); Calcium 7.6 mg/dL (7.8-10.44); Carbon Dioxide 21 mmol/L (22-29); Chloride 108 mmol/L (98-107); Estimated GFR-MDRD 78; Glucose 128 mg/dL (70-105); Potassium 4.6 mmol/L (3.5-5.1); Sodium 136 mmol/L (136-145)
[2019-04-28 12:13] LABS: ALV-art Gradient 216.575 (0-20); Puncture Site ALINE
--- NOTE | 2019-04-28 12:19 | RAD ---
Exam: Portable spine chest: HISTORY: Postop open heart COMPARISON: 04/22/2019 FINDINGS: Postop midline sternotomy. Endotracheal tube in satisfactory location. Chest tubes in place. Right ce ntral line in place. Patchy left perihilar and left lower lobe parenchymal changes probably representing some partial atelectasis. Possible very tiny left apical pneumothorax. Right lung is gilson ar. IMPRESSION: Patchy parenchymal changes in the left perihilar and left infra hilar region probably partial atelect asis. Probable very tiny left apical pneumothorax. Continued short-term follow-up.
[2019-04-28] MEDS ORDERED: Magnesium 2 GM/50 ML 2 GM in Premix Bag 1 BAG IVPB SCH (12:30)
[2019-04-28] MEDS ORDERED: Potassium Chloride 20 MEQ in Premix Bag 1 BAG IVPB PRN (12:37)
[2019-04-28] MEDS: Ketorolac Tromethamine 30 MG/ML VIAL IVP SCH ×2 (12:38→17:40)
[2019-04-28] MEDS ORDERED: Dextrose 50% Abboject 50 ML SYRINGE SLOW IVP PRN (12:38)
[2019-04-28] MEDS ORDERED: HUMULIN R 100 UNITS in Sodium Chloride 0.9% 100 ML IVPB SCH (12:38)
[2019-04-28] MEDS ORDERED: Dextrose 5% in Water 1,000 ML IV PRN (12:38)
[2019-04-28] MEDS ORDERED: Insulin Regular 300 UNITS/3 ML VIAL SC PRN (12:38)
--- NOTE | 2019-04-28 12:38 | OP ---
DATE OF PROCEDURE: 04/28/2019 PREOPERATIVE DIAGNOSIS: Aortic stenosis/hypertension. POSTOPERATIVE DIAGNOSIS: Aortic stenosis/hypertension. PROCEDURE PERFORMED: Aortic valve replacement with a #25 [place] Adam mechanical valve. PROCUREMENT DIRECTOR: Noman Frost MD ANESTHESIA: General endotracheal-Dr. Sergo Winkler. PUMP TIME: 91. CROSS-CLAMP TIME: 61 minutes. LOW CORE TEMPERATURE: 34 degrees Celsius. DRAINS: 24-[place] chest tubes x2. DRIPS: None. TRANSFUSIONS: None. DESCRIPTION OF PROCEDURE: After consent was obtained, the patient was brought to the operating room, placed in supine position on the operating table. Appropriate central line and monitors were placed and general endotracheal anesthesia was induced. Chest, abdomen, and legs were prepped and draped in usual sterile fashion. A median sternotomy was performed. The patient was systemically heparinized. Thymic fat and pericardium were divided with electrocautery. Pericardial stay sutures were placed. Drain was placed in the pericardium for an infusion of carbon dioxide. After adequate heparinization, aortic and atrial cannulation was performed. The patient was placed on cardiopulmonary bypass. The left ventricular sump drain was placed through the right superior pulmonary vein. Aortic cross-clamp was applied and antegrade sanguineous cardioplegic arrest was obtained. 1 L of antegrade cold [place] cardioplegia was given. Topical cold solution was used. Carbon dioxide infusion was begun into the pericardial well. Transverse hockey-stick aortotomy was performed. The aortic valve was inspected. It was heavily calcified. The left and right commissures were fused all the way to the valve leaflet edge. The valve was physiologically a bicuspid valve. Leaflets were then debrided. Annulus was decalcified. Valve measured as a #25. Pledgeted 2-0 Ethibond sutures were placed circumferentially in the annulus. Sutures were then passed through the valve sewing ring and the valve was seated. The valve was secured with Cor-Knots. At completion, the valve leaflets were freely mobile. Aortotomy was closed in a running two-layered fashion with pledgeted 4-0 Prolene suture. De-airing maneuvers were then performed. The patient was placed in Trendelenburg position. The patient was ventilated and allowed to fill. After adequate de-airing by STACY, the cross-clamp was removed. Ventricular pacing wires were placed. Hemostasis was ensured at the suture line. The patient was warmed and weaned from cardiopulmonary bypass. After resumption of sinus rhythm, good hemodynamics, temperature greater than 36.5, bypass was discontinued. Decannulation was performed. A pursestring suture was secured. On STACY interrogation, the valve leaflets were noted to be freely mobile. There was good valve closure with no perivalvular leak. On palpation of the aorta, there was a good valve snap. Protamine was administered. Hemostasis was ensured within the mediastinum. Sternum was treated with vancomycin paste. The sternum was then closed with #7 wire. Second 24-[place] chest tube was placed in the mediastinum. The sternal wires were then twisted and buried. Wound was irrigated and treated with platelet poor plasma. Peristernal block was performed with 0.5% Marcaine mixed with Decadron. Wound was then closed in multiple layers and Dermabond applied to the skin. The patient tolerated the procedure well, was transferred to the intensive care unit in stable, but critical condition. Job ID: [id number]
[2019-04-28 13:46] LABS: Base Excess (BEa) -5.9 mEq/L (-2.0 to +3.0); CO2 Tension 35.8 mmHg (35.0-45.0); Calcium, Ionized 1.12 mmol/L (1.12-1.30); Hemoglobin (Hb) 13.7 g/dL (14.0-18.0); O2 Tension (PaO2) 90.8 mmHg (80.0-100.0); Potassium - ABG Lab 4.48 mmol/L (3.70-5.30); pH, Arterial 7.34 (7.35-7.45)
[2019-04-28 13:47] LABS: Puncture Site ALINE
[2019-04-28] MEDS ORDERED: Vancomycin HCl 2 GM in Sodium Chloride 0.9% 250 ML 300 ML IVPB SCH (14:00)
[2019-04-28] MEDS: CEFAZOLIN 2 GM in Premix Bag 1 BAG IVPB SCH ×2 (14:59→22:42)
[2019-04-28 17:14] LABS: Hemoglobin 13.4 g/dL (14.0-18.0)
[2019-04-28 17:32] LABS: Potassium 4.3 mmol/L (3.5-5.1)
[2019-04-28] MEDS: HYDROcodone/Acetaminophen 5/325 mg Tablet PO PRN ×2 (17:45→21:45)
[2019-04-28] MEDS: Famotidine/PF 20 mg/2ml Vial SLOW IVP SCH (20:54)
--- NOTE | 2019-04-28 22:33 | PDOC.HOSPP ---
- Subjective Encounter Date: 04/28/19 Encounter Time: 14:00 Subjective: Patient seen and examined for . s/p AVR. On [facility] Vent. No overnight events - Objective Vital Signs & Weight: Vital Signs (12 hours) Temp Pulse Resp BP Pulse Ox 04/28/19 18:50 96 04/28/19 16:00 93 L 04/28/19 13:56 99 04/28/19 13:05 16 04/28/19 11:39 55 L 110/67 04/28/19 11:38 97.2 F L 12 04/28/19 11:25 95 Weight Admit Weight 265 lb 6.985 oz Weight 257 lb 12.8 oz Most Recent Monitor Data Heart Rate from ECG 65 NIBP 94/59 NIBP BP-Mean 70 Respiration from ECG 20 SpO2 95 I&O: 04/27/19 04/28/19 04/29/19 06:59 06:59 06:59 Intake Total 2450 Output Total 1565 Balance 885 Result Diagrams: 04/29/19 04:25 04/29/19 04:25 Additional Labs: Accuchecks 04/28/19 04/28/19 04/28/19 11:19 10:09 09:21 POC Glucose 124 H 149 H 150 H 04/28/19 09:13 POC Glucose 120 H EKG Reviewed by me: Yes (Tele SR) Hospitalist ROS - Review of Systems ROS unobtainable: due to endotracheal tube - Medication Medications: Active Medications Generic Name Dose Route Start Last Admin Trade Name Freq PRN Reason Stop Dose Admin Hydrocodone Bitart/Acetaminophen 1 tab 04/28/19 11:38 04/28/19 17:45 [place] 5/325 PO 1 tab Q4H PRN Administration Moderate Pain (4-6) Hydrocodone Bitart/Acetaminophen 2 tab 04/28/19 11:38 04/28/19 21:45 [place] 5/325 PO 2 tab Q4H PRN Administration Severe Pain (7-10) Albumin Human 12.5 gm 04/28/19 11:38 04/28/19 14:15 Albumin 5% IVPB 04/29/19 11:39 12.5 gm Q6H PRN Administration To Maintain SBP> 90 mmHG Famotidine 20 mg 04/28/19 21:00 04/28/19 20:54 Pepcid SLOW IVP 20 mg Q12HR MERLENE Administration Fentanyl 50 mcg 04/28/19 11:38 04/28/19 14:57 Sublimaze SLOW IVP 04/30/19 11:15 50 mcg Q2H PRN Administration Severe Pain (7-10) Cefazolin Sodium/Dextrose 2 gm 50 mls @ 100 mls/hr 04/28/19 15:00 04/28/19 14 :59 / Device IVPB 04/29/19 07:29 50 mls 0700,1500,2300 MERLENE Administration Potassium Chloride/Dextrose/Sod Cl 1,000 mls @ 40 mls/hr 04/28/19 11:38 04/28 12:38 D5 1/2 Ns W/20 Meq Kcl IV 1,000 mls .Q24H MERLENE Administration Vancomycin HCl 2 gm/ Sodium 500 mls @ 333.333 mls/hr 04/28/19 14:00 04/28/19 13:53 Chloride IVPB 500 mls 0700,1400 MERLENE Administration Ketorolac Tromethamine 30 mg 04/28/19 12:00 04/28/19 17:40 Toradol IVP 05/01/19 12:01 30 mg Q6HR MERLENE Administration Sodium Chloride 10 ml 04/28/19 21:00 04/28/19 20:54 Flush - Normal Saline IVF 10 ml Q12HR MERLENE Administration - Exam General Appearance: NAD Neck: no JVD Heart: RRR, no rubs Respiratory: CTAB, no ronchi Respiratory - other findings: dec AE at bases Gastrointestinal: soft, non-tender, normal bowel sounds Extremities: no edema Hosp A/P (1) Atrial flutter with rapid ventricular response Code(s): I48.92 - UNSPECIFIED ATRIAL FLUTTER Status: Acute (2) Severe aortic valve stenosis Code(s): I35.0 - NONRHEUMATIC AORTIC (VALVE) STENOSIS Status: Acute (3) Type 2 myocardial infarction Code(s): I21.A1 - MYOCARDIAL INFARCTION TYPE 2 Status: Acute (4) Obesity (BMI 30-39.9) Code(s): E66.9 - OBESITY, UNSPECIFIED Status: Chronic (5) Normal coronary arteries Code(s): Z03.89 - ENCNTR FOR OBS FOR OTH SUSPECTED DISEASES AND COND RULED OUT Status: Chronic (6) ARIANNA (obstructive sleep apnea) Code(s): G47.33 - OBSTRUCTIVE SLEEP APNEA (ADULT) (PEDIATRIC) Status: Chronic - Plan s/p AVR Cont Vent support No betablocker due to bradycardia Cont other meds as above
[2019-04-29] MEDS: Ketorolac Tromethamine 30 MG/ML VIAL IVP SCH ×5 (00:01→23:25)
[2019-04-29 05:00] LABS: #Lymphocytes 1.7 thou/uL (1.20-3.40); #Monocytes 0.9 thou/uL (0.11-0.59); #Neutrophils 8.7 thou/uL (1.40-6.50); %Basophils 0.1 % (0.0-1.0); %Eosinophils 0.3 % (0.0-10.0); %Lymphocytes 15.1 % (21.0-51.0); %Monocytes 8.2 % (0.0-10.0); %Neutrophils 76.3 % (42.0-75.0); Mean Corpuscular HGB CONC 34.3 g/dL (32.0-36.0); Mean Corpuscular Hemoglobin 34.4 pg (27.0-31.0); Mean Platelet Volume 8.4 fL (7.4-10.4); Platelet Count 143 thou/uL (130-400); RBC Distribution Width 11.8 % (11.5-14.5); Red Blood Cell (RBC) Count 2.92 mill/uL (4.70-6.10); White Blood Cell (WBC) Count 11.4 thou/uL (4.8-10.8)
[2019-04-29 05:11] LABS: Anion Gap 11 mmol/L (10-20); BUN (Urea Nitrogen) 20 mg/dL (8.9-20.6); Calc. Creatinine Clearance 154 mL/min (70-130); Calcium 8.2 mg/dL (7.8-10.44); Carbon Dioxide 26 mmol/L (22-29); Chloride 106 mmol/L (98-107); Estimated GFR-MDRD 84; Glucose 112 mg/dL (70-105); Potassium 3.7 mmol/L (3.5-5.1); Sodium 139 mmol/L (136-145)
[2019-04-29] MEDS: CEFAZOLIN 2 GM in Premix Bag 1 BAG IVPB SCH (06:07)
[2019-04-29] MEDS: Famotidine/PF 20 mg/2ml Vial SLOW IVP SCH (08:19)
[2019-04-29] MEDS ORDERED: Magnesium 2 GM/50 ML 2 GM in Premix Bag 1 BAG IVPB SCH (09:00)
[2019-04-29] MEDS ORDERED: Aspirin 325 MG TAB PO SCH (09:00)
--- NOTE | 2019-04-29 09:58 | RAD ---
FRONTAL RADIOGRAPH CHEST PORTABLE SEMIUPRIGHT: Date: 04/29/19 COMPARISON: 04/28/19. HISTORY: Evaluate chest following open heart surgery. FINDINGS: Stable midline sternotomy wires and right-sided vascular catheter. Stable focal opacity in the left perihilar region and the medial left lung base suggesting infiltrate or volume loss. No discrete pneumothorax. IMPRESSION: Persistent nonspecific increased density in the medial left base and the left perihilar region, for w hich follow-up to resolution is advised. POS: OFF
[2019-04-29] MEDS ORDERED: Artificial Tears 18 DROP/0.9 ML EA EYE PRN (10:14)
[2019-04-29] MEDS ORDERED: Bisacodyl 10 MG SUPP PR PRN (10:14)
[2019-04-29] MEDS ORDERED: Bisacodyl 5 MG TAB PO PRN (10:14)
[2019-04-29] MEDS ORDERED: Mag-Al 1200 mg/1200 mg/30 ML UDCUP PO PRN (10:14)
[2019-04-29] MEDS ORDERED: Mineral Oil ENEMA PR PRN (10:14)
[2019-04-29] MEDS ORDERED: diphenhydrAMINE 25 MG CAP PO PRN (10:14)
[2019-04-29] MEDS ORDERED: Nitroglycerin 0.4 MG TAB (25 Tab Bottle) SL PRN (10:14)
[2019-04-29] MEDS ORDERED: Guaifenesin DM 100-10/5 ML UDCUP PO PRN (10:14)
[2019-04-29] MEDS: HYDROcodone/Acetaminophen 5/325 mg Tablet PO PRN ×2 (10:26→18:34)
--- NOTE | 2019-04-29 14:03 | PRG ---
DATE OF SERVICE: 04/29/2019 SUBJECTIVE: The patient is seen and examined at the bedside. He does not have much complaints to offer except for the pain in the incision, which is rated at 4 to 5 on a scale from 1 to 10. OBJECTIVE: VITAL SIGNS: Blood pressure is 122/78, pulse is 72, respirations 15, O2 saturation is 95% on room air. HEENT: His head is atraumatic and normocephalic. Eyes are PERRLA. Sclerae are nonicteric. Oral mucosa is moist. NECK: Supple. No JVD. LUNGS: Breath sounds diminished at both bases. Incision in front chest midline looks good. ABDOMEN: Soft and nontender. EXTREMITIES: No clubbing, cyanosis, or edema. NEUROLOGIC: He is alert and oriented x4. There is no any motor or sensory deficit present. Cranial nerves are intact. LABORATORY DATA: Labs showed white count of 11.4, hemoglobin of 10.0, hematocrit 29.2, platelet count is 143,000. Normal chemistry except for glucose which is 112, calcium 8.2. IMPRESSION: 1. Severe aortic valve stenosis, status post AVR. 2. Type 2 myocardial infarction. 3. Normal coronary arteries. 4. Atrial flutter with rapid ventricular response. 5. Obstructive sleep apnea. PLAN: The patient is moved to [facility] to continue recovery from his surgery. He is on p.r.n. nonsteroidal anti-inflammatory agent, which is ketorolac and aspirin. We will advance the diet. He will continue his PT and he should be going home soon. Job ID: [id number]
[2019-04-29] MEDS: Furosemide 20 MG TAB PO SCH (14:58)
[2019-04-29] MEDS: Docusate 100 MG CAP PO SCH (20:06)
[2019-04-29] MEDS: Zolpidem Tartrate 5 MG TAB PO PRN (20:06)
[2019-04-29] MEDS ORDERED: Metoprolol Tartrate 25 MG TAB PO SCH (21:00)
[2019-04-30] MEDS: HYDROcodone/Acetaminophen 5/325 mg Tablet PO PRN ×3 (04:15→19:55)
[2019-04-30 04:41] LABS: #Eosinphils 0.1 thou/uL (0.0-0.7); #Lymphocytes 1.7 thou/uL (1.20-3.40); #Monocytes 1.1 thou/uL (0.11-0.59); #Neutrophils 8.1 thou/uL (1.40-6.50); %Basophils 0.3 % (0.0-1.0); %Eosinophils 1.2 % (0.0-10.0); %Lymphocytes 15.5 % (21.0-51.0); %Monocytes 9.6 % (0.0-10.0); %Neutrophils 73.3 % (42.0-75.0); Hemoglobin 11.3 g/dL (14.0-18.0); Mean Corpuscular HGB CONC 34.3 g/dL (32.0-36.0); Mean Corpuscular Hemoglobin 33.1 pg (27.0-31.0); Mean Corpuscular Volume 96.6 fL (78.0-98.0); Platelet Count 183 thou/uL (130-400); RBC Distribution Width 11.5 % (11.5-14.5); Red Blood Cell (RBC) Count 3.42 mill/uL (4.70-6.10); White Blood Cell (WBC) Count 11.1 thou/uL (4.8-10.8)
[2019-04-30 04:48] LABS: Anion Gap 9 mmol/L (10-20); BUN (Urea Nitrogen) 18 mg/dL (8.9-20.6); Calc. Creatinine Clearance 154 mL/min (70-130); Carbon Dioxide 27 mmol/L (22-29); Chloride 104 mmol/L (98-107); Estimated GFR-MDRD 84; Glucose 107 mg/dL (70-105); Potassium 4.2 mmol/L (3.5-5.1); Sodium 136 mmol/L (136-145)
[2019-04-30] MEDS: Ketorolac Tromethamine 30 MG/ML VIAL IVP SCH ×3 (05:46→19:52)
[2019-04-30] MEDS: Docusate 100 MG CAP PO SCH ×2 (09:28→19:57)
[2019-04-30] MEDS: Furosemide 20 MG TAB PO SCH (09:28)
[2019-04-30] MEDS: Aspirin 81 mg Enteric Coated Tablet PO SCH (09:28)
--- NOTE | 2019-04-30 15:47 | PDOC.HOSPP ---
- Subjective Encounter Date: 04/30/19 Encounter Time: 15:46 Subjective: FEELING BETTER, WALKED WITH PT extensively today, feeling better after removal of chest tubes - Objective Vital Signs & Weight: Vital Signs (12 hours) Temp Pulse Pulse BP BP Pulse Ox Pulse Ox 04/30/19 15:04 99.0 F 04/30/19 12:27 84 81 154/109 H 139/88 97 04/30/19 08:15 79 77 142/88 H 137/93 H 96 04/30/19 07:39 100 04/30/19 07:07 97.0 F L Pulse Ox 04/30/19 15:04 04/30/19 12:27 97 04/30/19 08:15 97 04/30/19 07:39 04/30/19 07:07 Weight Admit Weight 265 lb 6.985 oz Weight 256 lb 9.6 oz Most Recent Monitor Data Heart Rate from ECG 83 NIBP 154/109 NIBP BP-Mean 124 Respiration from ECG 22 SpO2 97 I&O: 04/29/19 04/30/19 05/01/19 06:59 06:59 06:59 Intake Total 3493 2009 Output Total 2093 7563 Balance 1408 -905 Result Diagrams: 04/30/19 04:05 04/30/19 04:05 Hospitalist ROS - Medication Medications: Active Medications Generic Name Dose Route Start Last Admin Trade Name Freq PRN Reason Stop Dose Admin Hydrocodone Bitart/Acetaminophen 1 tab 04/28/19 11:38 04/30/19 12:29 [place] 5/325 PO 1 tab Q4H PRN Administration Moderate Pain (4-6) Hydrocodone Bitart/Acetaminophen 2 tab 04/28/19 11:38 04/30/19 04:15 [place] 5/325 PO 2 tab Q4H PRN Administration Severe Pain (7-10) Aspirin 81 mg 04/30/19 09:00 04/30/19 09:28 Ecotrin PO 81 mg DAILY MERLENE Administration Docusate Sodium 100 mg 04/29/19 21:00 04/30/19 09:28 Colace PO 100 mg BID MERLENE Administration Ketorolac Tromethamine 30 mg 04/28/19 12:00 04/30/19 12:25 Toradol IVP 05/01/19 12:01 30 mg Q6HR MERLENE Administration Sodium Chloride 10 ml 04/28/19 21:00 09/01/19 09:28 Flush - Normal Saline IVF 10 ml Q12HR MERLENE Administration Zolpidem Tartrate 5 mg 04/29/19 10:14 04/29/19 20:06 Ambien PO 5 mg HSPRN PRN Administration Insomnia - Exam General Appearance: awake alert Eye: PERRL, anicteric sclera ENT: normocephalic atraumatic, no oropharyngeal lesions Neck: supple, symmetric, no JVD, no thyromegaly Heart: RRR, no murmur, no gallops, no rubs, normal peripheral pulses Heart - other findings: sternal incision site healing well Respiratory: CTAB, no wheezes, no rales Gastrointestinal: soft, non-tender, non-distended, normal bowel sounds, no palpable masses Extremities: no cyanosis, no clubbing, no edema Skin: normal turgor, no lesions, no rashes Neurological: CN's grossly intact, normal sensation to touch, no weakness Hosp A/P (1) Atrial flutter with rapid ventricular response Code(s): I48.92 - UNSPECIFIED ATRIAL FLUTTER Status: Acute (2) Severe aortic valve stenosis Code(s): I35.0 - NONRHEUMATIC AORTIC (VALVE) STENOSIS Status: Acute (3) Type 2 myocardial infarction Code(s): I21.A1 - MYOCARDIAL INFARCTION TYPE 2 Status: Acute (4) Normal coronary arteries Code(s): Z03.89 - ENCNTR FOR OBS FOR OTH SUSPECTED DISEASES AND COND RULED OUT Status: Chronic (5) ARIANNA (obstructive sleep apnea) Code(s): G47.33 - OBSTRUCTIVE SLEEP APNEA (ADULT) (PEDIATRIC) Status: Chronic (6) Obesity (BMI 30-39.9) Code(s): E66.9 - OBESITY, UNSPECIFIED Status: Chronic - Plan old records reviewed/req, PT/OT, DVT proph w/SCDs S/P MVR, S/P [place] S/P CATH, NO cad PATIENT RECOVERING WELL, continue aspirin, continue PT Home soon
[2019-04-30] MEDS: Zolpidem Tartrate 5 MG TAB PO PRN (19:55)
[2019-05-01] MEDS: Ketorolac Tromethamine 30 MG/ML VIAL IVP SCH ×3 (01:12→11:41)
[2019-05-01 01:38] LABS: #Basophils 0.1 thou/uL (0.0-0.2); #Eosinphils 0.2 thou/uL (0.0-0.7); #Lymphocytes 2.5 thou/uL (1.20-3.40); #Neutrophils 6.2 thou/uL (1.40-6.50); %Basophils 0.5 % (0.0-1.0); %Eosinophils 1.9 % (0.0-10.0); %Lymphocytes 25.4 % (21.0-51.0); %Monocytes 10.3 % (0.0-10.0); %Neutrophils 61.9 % (42.0-75.0); Hemoglobin 11.5 g/dL (14.0-18.0); Mean Corpuscular HGB CONC 35.1 g/dL (32.0-36.0); Mean Corpuscular Volume 96.7 fL (78.0-98.0); Mean Platelet Volume 7.9 fL (7.4-10.4); Platelet Count 200 thou/uL (130-400); RBC Distribution Width 11.5 % (11.5-14.5); Red Blood Cell (RBC) Count 3.39 mill/uL (4.70-6.10); White Blood Cell (WBC) Count 9.9 thou/uL (4.8-10.8)
[2019-05-01 02:15] LABS: Anion Gap 11 mmol/L (10-20); BUN (Urea Nitrogen) 19 mg/dL (8.9-20.6); Calc. Creatinine Clearance 144 mL/min (70-130); Calcium 8.3 mg/dL (7.8-10.44); Carbon Dioxide 26 mmol/L (22-29); Chloride 103 mmol/L (98-107); Estimated GFR-MDRD 78; Glucose 111 mg/dL (70-105); Potassium 4.1 mmol/L (3.5-5.1); Sodium 136 mmol/L (136-145)
[2019-05-01 02:27] LABS: INR-International Normal Ratio 1.2; Prothrombin Time 15.6 SEC (12.0-14.7)
[2019-05-01 02:28] LABS: PTT 37.8 SEC (22.9-36.1)
[2019-05-01] MEDS: HYDROcodone/Acetaminophen 5/325 mg Tablet PO PRN ×4 (04:49→22:47)
[2019-05-01] MEDS ORDERED: Warfarin Sodium 5 MG TAB PO SCH (09:00)
[2019-05-01] MEDS: Aspirin 81 mg Enteric Coated Tablet PO SCH (09:36)
[2019-05-01] MEDS: Docusate 100 MG CAP PO SCH ×2 (09:36→20:23)
[2019-05-01] MEDS: Metoprolol Tartrate 25 MG TAB PO SCH ×2 (09:37→20:23)
--- NOTE | 2019-05-01 16:23 | PDOC.HOSPP ---
- Subjective Encounter Date: 05/01/19 Encounter Time: 16:22 Subjective: doing well, no complains - Objective Vital Signs & Weight: Vital Signs (12 hours) Temp Pulse BP BP Pulse Ox 05/01/19 15:32 97.8 F 05/01/19 11:07 99.6 F 05/01/19 10:34 81 122/81 126/84 05/01/19 08:32 100 05/01/19 07:36 97.2 F L Weight Admit Weight 265 lb 6.985 oz Weight 262 lb Most Recent Monitor Data Heart Rate from ECG 78 NIBP 131/77 NIBP BP-Mean 95 Respiration from ECG 18 SpO2 93 I&O: 04/30/19 05/01/19 05/02/19 06:59 06:59 06:59 Intake Total 2009 2309 Output Total 5 1225 Balance -905 1085 Result Diagrams: 05/01/19 01:25 05/01/19 01:25 Hospitalist ROS - Medication Medications: Active Medications Generic Name Dose Route Start Last Admin Trade Name Freq PRN Reason Stop Dose Admin Hydrocodone Bitart/Acetaminophen 1 tab 04/28/19 11:38 05/01/19 11:42 [place] 5/325 PO 1 tab Q4H PRN Administration Moderate Pain (4-6) Hydrocodone Bitart/Acetaminophen 2 tab 04/28/19 11:38 04/30/19 04:15 [place] 5/325 PO 2 tab Q4H PRN Administration Severe Pain (7-10) Aspirin 81 mg 04/30/19 09:00 05/01/19 09:36 Ecotrin PO 81 mg DAILY MERLENE Administration Docusate Sodium 100 mg 04/29/19 21:00 05/01/19 09:36 Colace PO 100 mg BID MERLENE Administration Metoprolol Tartrate 25 mg 05/01/19 09:00 05/01/19 09:37 Lopressor PO 25 mg BID MERLENE Administration Sodium Chloride 10 ml 04/28/19 21:00 05/01/19 09:37 Flush - Normal Saline IVF 10 ml Q12HR MERLENE Administration Zolpidem Tartrate 5 mg 04/29/19 10:14 04/30/19 19:55 Ambien PO 5 mg HSPRN PRN Administration Insomnia - Exam Eye: PERRL, anicteric sclera ENT: normocephalic atraumatic, no oropharyngeal lesions, moist mucosa Neck: supple, symmetric, no JVD, no thyromegaly Heart: RRR, no murmur, no gallops, no rubs, normal peripheral pulses Heart - other findings: sternal incision site healing well Respiratory: CTAB, no wheezes, no rales, no ronchi, normal chest expansion Gastrointestinal: soft, non-tender, non-distended, normal bowel sounds Extremities: no cyanosis, no clubbing, no edema Skin: normal turgor, no lesions, no rashes Neurological: CN's grossly intact, normal sensation to touch, no weakness, no focal deficits Hosp A/P (1) Atrial flutter with rapid ventricular response Code(s): I48.92 - UNSPECIFIED ATRIAL FLUTTER Status: Acute (2) Severe aortic valve stenosis Code(s): I35.0 - NONRHEUMATIC AORTIC (VALVE) STENOSIS Status: Acute (3) Type 2 myocardial infarction Code(s): I21.A1 - MYOCARDIAL INFARCTION TYPE 2 Status: Acute (4) Normal coronary arteries Code(s): Z03.89 - ENCNTR FOR OBS FOR OTH SUSPECTED DISEASES AND COND RULED OUT Status: Chronic (5) ARIANNA (obstructive sleep apnea) Code(s): G47.33 - OBSTRUCTIVE SLEEP APNEA (ADULT) (PEDIATRIC) Status: Chronic (6) Obesity (BMI 30-39.9) Code(s): E66.9 - OBESITY, UNSPECIFIED Status: Chronic - Plan S/P MVR, S/P [place] S/P CATH, NO cad PATIENT RECOVERING WELL, continue aspirin, continue PT Home soon, INR subtherapeutic with Warfarin
--- NOTE | 2019-05-01 23:43 | PDOC.EVN ---
Event Note - Event Note Event Note: Notified by RN re: patient with SVT x 14 beats. Asymptomatic during this episode. EKG requested. Patient states he then developed epigastric discomfort. States it feels like a burning sensation. He attempted to use the bathroom and had excess flatus. Last bowel movement was 2 days ago. Has been tolerating oral intake without any n/v. Given norco. Mild epigastric discomfort on exam. He has reduced his hydrocodone today to 1 tablet, and has noticed some increase discomfort. Was able to move without discomfort when taking 2 tablets. Patient also states he hears his valve clicking (s/p AVR) and hadnt before. Has been able to fall asleep and doesnt usually hear it but has been requiring Benadryl for sleep. Requesting Benadryl. Patient seen and examined. HR 56, BP 122/80, RR 18, 94% on RA, Temp 98.6. 1. Will give simethicone and GI cocktail. 2. EKG requested. 3. Will check Renal function and electrolytes. 4. Monitor vitals. 5. Benadryl for sleep.
[2019-05-01] MEDS ORDERED: Simethicone Chewable 80 MG TAB PO SCH (23:45)
[2019-05-01] MEDS ORDERED: diphenhydrAMINE 25 MG CAP PO SCH (23:45)
[2019-05-01] MEDS ORDERED: Lidocaine 2% Viscous Solution 10 ML, Aluminum & Magnesium Hydroxide 30 ML SSW SCH (23:45)
[2019-05-02 00:11] LABS: Albumin 3.3 g/dL (3.5-5.0); Anion Gap 10 mmol/L (10-20); BUN (Urea Nitrogen) 16 mg/dL (8.9-20.6); Calc. Creatinine Clearance 160 mL/min (70-130); Calcium 8.2 mg/dL (7.8-10.44); Carbon Dioxide 27 mmol/L (22-29); Chloride 102 mmol/L (98-107); Estimated GFR-MDRD 86; Glucose 113 mg/dL (70-105); Magnesium 1.9 mg/dL (1.6-2.6); Sodium 135 mmol/L (136-145)
[2019-05-02] MEDS: Polyethylene Glycol 3350 17 GM Packet PO PRN ×2 (05:05→09:24)
[2019-05-02] MEDS ORDERED: Digoxin 0.25 MG TAB PO SCH (06:15)
[2019-05-02] MEDS: Aspirin 81 mg Enteric Coated Tablet PO SCH (09:24)
[2019-05-02] MEDS: Docusate 100 MG CAP PO SCH ×2 (09:24→21:26)
[2019-05-02] MEDS: Metoprolol Tartrate 25 MG TAB PO SCH ×2 (09:24→21:44)
--- NOTE | 2019-05-02 13:03 | PDOC.HOSPP ---
- Subjective Encounter Date: 05/02/19 Encounter Time: 13:02 Subjective: Feeling better after he had a bowel movement, sleepy now - Objective Vital Signs & Weight: Vital Signs (12 hours) Temp Pulse Pulse Pulse Resp BP BP 05/02/19 12:02 98.4 F 65 18 05/02/19 12:00 66 66 135/86 134/76 05/02/19 11:40 63 59 L 157/86 H 147/89 H 05/02/19 09:56 66 05/02/19 07:46 98.3 F 66 18 05/02/19 04:00 99.2 F 61 20 BP Pulse Ox Pulse Ox Pulse Ox 05/02/19 12:02 135/86 96 05/02/19 12:00 97 95 05/02/19 11:40 95 96 05/02/19 09:56 05/02/19 07:46 142/88 H 05/02/19 04:00 131/82 93 L Weight Admit Weight 265 lb 6.985 oz Weight 267 lb Most Recent Monitor Data Heart Rate from ECG 78 NIBP 139/103 NIBP BP-Mean 115 Respiration from ECG 18 SpO2 93 I&O: 05/01/19 05/02/19 05/03/19 06:59 06:59 06:59 Intake Total 2310 2540 Output Total 1225 Balance 1085 2540 Result Diagrams: 05/01/19 01:25 05/01/19 23:51 Additional Labs: Accuchecks 04/28/19 11:49 POC Glucose 130 H Hospitalist ROS - Medication Medications: Active Medications Generic Name Dose Route Start Last Admin Trade Name Freq PRN Reason Stop Dose Admin Hydrocodone Bitart/Acetaminophen 1 tab 04/28/19 11:38 05/01/19 22:47 [place] 5/325 PO 1 tab Q4H PRN Administration Moderate Pain (4-6) Hydrocodone Bitart/Acetaminophen 2 tab 04/28/19 11:38 04/30/19 04:15 [place] 5/325 PO 2 tab Q4H PRN Administration Severe Pain (7-10) Aspirin 81 mg 04/30/19 09:00 05/02/19 09:24 Ecotrin PO 81 mg DAILY MERLENE Administration Bisacodyl 10 mg 04/29/19 10:14 05/02/19 05:05 Dulcolax PO 10 mg Q12H PRN Administration Constipation Docusate Sodium 100 mg 04/29/19 21:00 05/02/19 09:24 Colace PO 100 mg BID MERLENE Administration Metoprolol Tartrate 25 mg 05/01/19 09:00 05/02/19 09:24 Lopressor PO 25 mg BID MERLENE Administration Polyethylene Glycol 17 gm 05/02/19 04:31 05/02/19 09:24 Miralax PO 17 gm DAILYPRN PRN Administration Constipation Sodium Chloride 10 ml 04/28/19 21:00 05/02/19 10:36 Flush - Normal Saline IVF 10 ml Q12HR MERLENE Administration Zolpidem Tartrate 5 mg 04/29/19 10:14 04/30/19 19:55 Ambien PO 5 mg HSPRN PRN Administration Insomnia - Exam Eye: PERRL, anicteric sclera ENT: normocephalic atraumatic, no oropharyngeal lesions, moist mucosa Neck: supple, symmetric, no JVD, no thyromegaly Heart: RRR, no murmur, no gallops, no rubs, normal peripheral pulses Heart - other findings: sternal incision site is healing well Respiratory: CTAB, no wheezes, no rales, no ronchi, normal chest expansion Gastrointestinal: soft, non-tender, non-distended, normal bowel sounds Extremities: no cyanosis, no clubbing, no edema Skin: normal turgor, no lesions, no rashes Neurological: CN's grossly intact, normal sensation to touch, no weakness Hosp A/P (1) Severe aortic valve stenosis Code(s): I35.0 - NONRHEUMATIC AORTIC (VALVE) STENOSIS Status: Acute (2) Atrial flutter with rapid ventricular response Code(s): I48.92 - UNSPECIFIED ATRIAL FLUTTER Status: Acute (3) Type 2 myocardial infarction Code(s): I21.A1 - MYOCARDIAL INFARCTION TYPE 2 Status: Acute (4) Normal coronary arteries Code(s): Z03.89 - ENCNTR FOR OBS FOR OTH SUSPECTED DISEASES AND COND RULED OUT Status: Chronic (5) ARIANNA (obstructive sleep apnea) Code(s): G47.33 - OBSTRUCTIVE SLEEP APNEA (ADULT) (PEDIATRIC) Status: Chronic (6) Obesity (BMI 30-39.9) Code(s): E66.9 - OBESITY, UNSPECIFIED Status: Chronic - Plan S/P AVR for severe aortic stenosis, S/P NV S/P CATH, NO cad PATIENT RECOVERING WELL, continue aspirin, continue PT Home soon, INR subtherapeutic with Warfarin
--- NOTE | 2019-05-02 13:45 | PRG ---
DATE OF SERVICE: 05/02/2019 SUBJECTIVE: Mr. Stone is doing well with no current complaints. He states he is ambulating. He did have trouble with constipation, but that has improved. OBJECTIVE: VITAL SIGNS: Blood pressure 135/86, pulse 65, temperature 98.4. LUNGS: Clear to auscultation. HEART: Regular rate and rhythm with a normal aortic valve click. ABDOMEN: Soft, nontender, nondistended. EXTREMITIES: No edema. IMPRESSION: Status post aortic valve replacement. RECOMMENDATIONS: The patient initially presented with atrial flutter, that may have been related to his aortic stenosis. I would likely to recommend a 3-week event recorder to assess for significant dysrhythmias as an outpatient. Otherwise, I recommend Coumadin with PT/INR between 2 and 3. He will be set up in the Coumadin Clinic. Continue ambulation, incentive spirometry. Job ID: [id number]
[2019-05-02 13:51] VITALS: BMI 38.2
[2019-05-02] MEDS ORDERED: Warfarin Sodium 5 MG TAB PO SCH (17:00)
[2019-05-02] MEDS: HYDROcodone/Acetaminophen 5/325 mg Tablet PO PRN (21:26)
[2019-05-02] MEDS: Ondansetron PF 4 MG/2 ML Vial IVP PRN (22:51)
[2019-05-03 05:25] LABS: INR-International Normal Ratio 1.6; Prothrombin Time 19.4 SEC (12.0-14.7)
[2019-05-03 05:26] LABS: PTT 40.8 SEC (22.9-36.1)
[2019-05-03] MEDS: HYDROcodone/Acetaminophen 5/325 mg Tablet PO PRN ×3 (05:51→21:21)
[2019-05-03] MEDS: Ondansetron PF 4 MG/2 ML Vial IVP PRN ×3 (05:54→21:23)
[2019-05-03] MEDS: Digoxin 0.25 MG TAB PO SCH (09:33)
[2019-05-03] MEDS: Aspirin 81 mg Enteric Coated Tablet PO SCH (09:33)
[2019-05-03] MEDS: Docusate 100 MG CAP PO SCH ×2 (09:35→21:21)
[2019-05-03] MEDS: Metoprolol Tartrate 25 MG TAB PO SCH ×2 (09:35→21:22)
[2019-05-03] MEDS ORDERED: Sodium Chloride 0.9% 10 ML ONE (13:00)
--- NOTE | 2019-05-03 16:22 | PDOC.CPN ---
- Subjective Date: 05/03/19 Time: 16:00 - Objective Allergies/Adverse Reactions: Allergies Allergy/AdvReac Type Severity Reaction Status Date / Time No Known Allergies Allergy Unverified 04/22/19 06:50 Visit Medications: Current Medications Hydrocodone Bitart/Acetaminophen ([place] 5/325) 1 tab PO Q4H PRN PRN Reason: Moderate Pain (4-6) Last Admin: 05/03/19 13:09 Dose: 1 tab Hydrocodone Bitart/Acetaminophen ([place] 5/325) 2 tab PO Q4H PRN PRN Reason: Severe Pain (7-10) Last Admin: 05/03/19 05:51 Dose: 2 tab Al Hydroxide/Mg Hydroxide (Maalox) 30 ml PO Q4H PRN PRN Reason: Indigestion Artificial Tears (Tears Naturale) 0 drop EA EYE PRN PRN PRN Reason: Dry Eyes Aspirin (Ecotrin) 81 mg PO DAILY [facility] Last Admin: 05/03/19 09:33 Dose: 81 mg Bisacodyl (Dulcolax) 10 mg MA Q12H PRN PRN Reason: Constipation Bisacodyl (Dulcolax) 10 mg PO Q12H PRN PRN Reason: Constipation Last Admin: 05/02/19 05:05 Dose: 10 mg Digoxin (Lanoxin) 0.25 mg PO DAILY [facility] Last Admin: 05/03/19 09:33 Dose: 0.25 mg Diphenhydramine HCl (Benadryl) 25 mg PO Q6H PRN PRN Reason: Itching & Insomnia or Thien Ketan Docusate Sodium (Colace) 100 mg PO BID [facility] Last Admin: 05/03/19 09:35 Dose: 100 mg Guaifenesin/Dextromethorphan (Robitussin Dm) 15 ml PO Q4H PRN PRN Reason: Cough Metoprolol Tartrate (Lopressor) 25 mg PO BID [facility] Last Admin: 05/03/19 09:35 Dose: 25 mg Mineral Oil (Fleet Mineral Oil) 133 ml MA DAILYPRN PRN PRN Reason: Constipation Nitroglycerin (Nitrostat) 0.4 mg SL Q5MIN PRN PRN Reason: Chest Pain Ondansetron HCl (Zofran) 4 mg IVP Q6H PRN PRN Reason: Nausea/Vomiting Last Admin: 05/03/19 13:10 Dose: 4 mg Polyethylene Glycol (Miralax) 17 gm PO DAILYPRN PRN PRN Reason: Constipation Last Admin: 05/02/19 09:24 Dose: 17 gm Sodium Chloride (Flush - Normal Saline) 10 ml IVF Q12HR MERLENE Last Admin: 05/03/19 09:35 Dose: 10 ml Warfarin Sodium (Coumadin) 7.5 mg PO 1700 MERLENE Stop: 05/03/19 19:00 Warfarin Sodium (Coumadin) 5 mg PO 1700 MERLENE Zolpidem Tartrate (Ambien) 5 mg PO HSPRN PRN PRN Reason: Insomnia Last Admin: 04/30/19 19:55 Dose: 5 mg Vital Signs & Weight: Vital Signs Temp Pulse Pulse Pulse Resp BP BP 05/03/19 12:00 97.9 F 57 L 16 05/03/19 11:18 60 58 L 136/89 128/81 05/03/19 09:33 63 05/03/19 08:35 66 56 L 126/83 160/76 H 05/03/19 08:00 97.3 F L 57 L 16 BP BP Pulse Ox Pulse Ox Pulse Ox 05/03/19 12:00 128/81 97 05/03/19 11:18 99 97 05/03/19 09:33 05/03/19 08:35 98 95 05/03/19 08:00 133/89 96 Admit Weight 256 lb 12.8 oz Weight 260 lb 12.8 oz - Quality Measures CV meds: Beta Suzie: Yes, TAWNY/ARB: No, Statin: No, ASA: Yes, Plavix/Effient/ Brilinta: No, Anticoagulant: Yes (Warfarin) - Medication Contraindications No Beta Suzie reason: Beta suzie not tolerated (bradycardia) No TAWNY/ARB reason: Treatment not indicated No Statin reason: Treatment not indicated No Antithrombotic reason: Treatment not indicated No Anticoagulant reason: Treatment not indicated - Labs Result Diagrams: 05/01/19 01:25 05/01/19 23:51 Troponin/CKMB CK-MB (CK-2) 2.7 ng/mL (0-6.6) 04/24/19 16:08 Troponin I 0.243 ng/mL (< 0.028) H 04/24/19 16:08 - Telemetry Sinus rhythms and dysrhythmias: sinus rhythm - Assessment/Plan Assessment/Plan: 1. Severe s/p mechanical AVR 2. AFlutter 3. NSTEMI-II Patient stable. INR 1.6. Ok for dicharge once INR therapeutic.
[2019-05-03] MEDS ORDERED: Warfarin Sodium 7.5 MG TAB PO SCH (17:00)
[2019-05-04] MEDS: HYDROcodone/Acetaminophen 5/325 mg Tablet PO PRN (03:43)
[2019-05-04] MEDS: Ondansetron PF 4 MG/2 ML Vial IVP PRN ×2 (03:43→09:26)
[2019-05-04] MEDS: Polyethylene Glycol 3350 17 GM Packet PO PRN (05:58)
[2019-05-04] MEDS: Mag-Al 1200 mg/1200 mg/30 ML UDCUP PO PRN ×2 (06:16→13:02)
[2019-05-04 06:25] LABS: PTT 47.1 SEC (22.9-36.1); Prothrombin Time 22.9 SEC (12.0-14.7)
[2019-05-04] MEDS: Docusate 100 MG CAP PO SCH (09:26)
[2019-05-04] MEDS: Metoprolol Tartrate 25 MG TAB PO SCH (09:26)
[2019-05-04] MEDS: Digoxin 0.25 MG TAB PO SCH (09:26)
[2019-05-04] MEDS: Aspirin 81 mg Enteric Coated Tablet PO SCH (09:27)
--- NOTE | 2019-05-04 10:56 | PRG ---
DATE OF SERVICE: 05/04/2019 SUBJECTIVE: Mr. Stone is doing very well. He is ambulating without issues. He is being set up in the Coumadin Clinic. OBJECTIVE: VITAL SIGNS: Blood pressure , temperature 98.5. LUNGS: Clear to auscultation. HEART: Regular rate and rhythm with normal systolic click. ABDOMEN: Soft, nontender, nondistended. EXTREMITIES: No edema. IMPRESSION: 1. Severe aortic stenosis. 2. Left ventricular hypertrophy. 3. Atrial flutter. RECOMMENDATIONS: The patient will be set up in Coumadin Clinic. We will achieve an INR of 2 to 3. His atrial flutter likely is related to his underlying aortic stenosis. He will be covered with anticoagulation. We will continue to monitor closely. Otherwise from my standpoint, will be okay for discharge. Job ID: [id number]
[2019-05-04 13:04] VITALS: BP 158/89; TEMP 98.7
[2019-05-04] MEDS ORDERED: Warfarin Sodium 5 MG TAB PO SCH (17:00)
--- NOTE | 2019-05-05 04:24 | DIS ---
DATE OF ADMISSION: 04/22/2019 DATE OF DISCHARGE: 05/04/2019 DIAGNOSES: 1. Aortic stenosis. 2. Hypertension. PROCEDURE: 1. Cardiac catheterization. 2. Aortic valve replacement with a #25 [place] mechanical valve. DESCRIPTION OF HOSPITAL STAY: Mr. Stone was admitted with atrial fibrillation and RVR. He had an echo performed, which showed critical aortic stenosis. His cardiac catheterization was negative for significant coronary artery disease. After appropriate counseling, he selected a mechanical valve and was taken to the operating room, underwent valve replacement on 04/28. He has done well postoperatively. At the time of discharge, he is ambulatory, tolerating a regular diet, having good bowel and bladder function. Incisions are clean, dry without evidence of infection. His INR is 2.0 at discharge. He has an appointment with the Coumadin Clinic to begin management with a goal INR of 2.5 to 3 tomorrow. FOLLOWUP: Follow up is with me in 2 weeks. Job ID: [id number]
[2019-05-05 12:35] LABS: Actual Bicarbonate (HCO3v) 24 mEq/L (22-28); Analyzer IN Cardio OR; Base Excess -2.6 mEq/L (-2.0 to +3.0); Calcium, Ionized 1.06 mmol/L (1.16-1.32); Chloride (ABG LAB) 104 mmol/L (98-106); Hemoglobin (Hb) 11.6 g/dL (13.1-17.2); Potassium - ABG Lab 4.49 mmol/L (3.70-5.30); Sodium 135.7 mmol/L (133-146)
[2019-05-05 12:35] LABS: Actual Bicarbonate (HCO3a) 23.6 mEq/L (22-28); Analyzer IN Cardio OR; Base Excess (BEa) -0.8 mEq/L (-2.0 to +3.0); CO2 Tension 38.1 mmHg (35.0-45.0); Carboxyhemoglobin (COHb) 0.4 gm% (0.0-3.0); Hemoglobin (Hb) 13.2 g/dL (14.0-18.0); O2 Tension (PaO2) 356.6 mmHg (80.0-100.0); Potassium - ABG Lab 3.91 mmol/L (3.70-5.30); pH, Arterial 7.41 (7.35-7.45)
[2019-05-05 12:36] LABS: Actual Bicarbonate (HCO3a) 25.1 mEq/L (22-28); Analyzer IN Cardio OR; Base Excess (BEa) -2.5 mEq/L (-2.0 to +3.0); CO2 Tension 56.2 mmHg (35.0-45.0); Calcium, Ionized 1.32 mmol/L (1.12-1.30); Carboxyhemoglobin (COHb) 0.1 gm% (0.0-3.0); Hemoglobin (Hb) 11.4 g/dL (14.0-18.0); O2 Tension (PaO2) 395.5 mmHg (80.0-100.0); Potassium - ABG Lab 5.03 mmol/L (3.70-5.30); pH, Arterial 7.27 (7.35-7.45)
[2019-05-05 12:36] LABS: Actual Bicarbonate (HCO3a) 22.3 mEq/L (22-28); Analyzer IN Cardio OR; CO2 Tension 45.7 mmHg (35.0-45.0); Calcium, Ionized 1.06 mmol/L (1.12-1.30); Carboxyhemoglobin (COHb) 0.3 gm% (0.0-3.0); Hemoglobin (Hb) 13.4 g/dL (14.0-18.0); O2 Tension (PaO2) 410.7 mmHg (80.0-100.0); Potassium - ABG Lab 4.36 mmol/L (3.70-5.30); pH, Arterial 7.31 (7.35-7.45)
[2019-05-05 12:36] LABS: Actual Bicarbonate (HCO3a) 23.7 mEq/L (22-28); Analyzer IN Cardio OR; Base Excess (BEa) -2.6 mEq/L (-2.0 to +3.0); CO2 Tension 47.5 mmHg (35.0-45.0); Calcium, Ionized 1.05 mmol/L (1.12-1.30); Carboxyhemoglobin (COHb) 0.2 gm% (0.0-3.0); Hemoglobin (Hb) 11.4 g/dL (14.0-18.0); Potassium - ABG Lab 4.47 mmol/L (3.70-5.30); pH, Arterial 7.32 (7.35-7.45)
[2019-05-05 12:37] LABS: Puncture Site ALINE
[2019-05-05 12:37] LABS: Puncture Site ALINE
[2019-05-05 12:38] LABS: Puncture Site ALINE
[2019-05-05 12:38] LABS: Puncture Site ALINE
== END 2019-05-04 15:31 | disposition home or self-care (01) | DRG 216 ==
LOC: ERS 04:27 → 2SW 06:48 → OBSVTOIN 06:48 → 2NO 04-25 16:29 → CCU 04-28 09:59 → IMCU/EMU 04-29 11:19 → 2NO 05-01 17:54 → IMCU/EMU 05-01 18:00 → 2NO 05-01 18:35
PROVIDERS: ADMIT Hospitalist; ATTEND Hospitalist
PROC: 4A023N7 Measurement of Cardiac Sampling and Pressure, Left Heart, Percutaneous Approach (ICD-10-PCS; principal; 2019-04-24)
PROC: B2111ZZ Fluoroscopy of Multiple Coronary Arteries using Low Osmolar Contrast (ICD-10-PCS; 2019-04-24)
PROC: B2151ZZ Fluoroscopy of Left Heart using Low Osmolar Contrast (ICD-10-PCS; 2019-04-24)
PROC: B24BZZ4 Ultrasonography of Heart with Aorta, Transesophageal (ICD-10-PCS; 2019-04-25)
PROC: 02RF0JZ Replacement of Aortic Valve with Synthetic Substitute, Open Approach (ICD-10-PCS; 2019-04-28)
PROC: 5A1221Z Performance of Cardiac Output, Continuous (ICD-10-PCS; 2019-04-28)
PROC: B24BZZ4 Ultrasonography of Heart with Aorta, Transesophageal (ICD-10-PCS; 2019-04-28)
DX: I35.0 Nonrheumatic aortic (valve) stenosis (principal); I21.4 Non-ST elevation (NSTEMI) myocardial infarction; I48.92 Unspecified atrial flutter; I51.7 Cardiomegaly; E66.9 Obesity, unspecified; I10 Essential (primary) hypertension; G47.33 Obstructive sleep apnea (adult) (pediatric); Z79.01 Long term (current) use of anticoagulants; Z68.37 Body mass index [BMI] 37.0-37.9, adult
CPT/HCPCS: 36415; 36416; 36430; 71045; 71270; 76942; 80048; 80061; 82553; 82805; 83735; 84443; 84484; 85025; 85610; 85730; 86850; 86900; 86901; 93005; 93010; 93306; 93312; 93460; 93567; 93798; 94002; 94760; 99152; 99153; C1769; J0670; J0690; J1100; J1160; J1644; J1650; J1885; J2001; J2150; J2250; J2405; J2704; J2720; J3010; J3370; J3475; J3480; J7050; P9045; P9047; Q0163; S0017; S0028

== ENCOUNTER 2019-05-14 19:20 | Inpatient (IN) | payer BC ==
[~2019-05-14 19:20] MED LIST: EPINEPHrine 1 MG/10 ML Abboject SYRINGE ONE; Lidocaine 1% PF 5 ML VIAL ONE; Ondansetron PF 4 MG/2 ML Vial ONE; PROPOFOL 200 MG/20 ML VIAL ONE
[2019-05-14 20:02] LABS: #Eosinphils 0.2 thou/uL (0.0-0.7); #Lymphocytes 1.8 thou/uL (1.20-3.40); #Monocytes 0.9 thou/uL (0.11-0.59); #Neutrophils 12.5 thou/uL (1.40-6.50); %Basophils 0.3 % (0.0-1.0); %Eosinophils 1.3 % (0.0-10.0); %Lymphocytes 11.7 % (21.0-51.0); %Neutrophils 80.8 % (42.0-75.0); Hemoglobin 8.6 g/dL (14.0-18.0); Mean Corpuscular HGB CONC 34.4 g/dL (32.0-36.0); Mean Corpuscular Volume 95.8 fL (78.0-98.0); Mean Platelet Volume 6.7 fL (7.4-10.4); Platelet Count 456 thou/uL (130-400); RBC Distribution Width 11.3 % (11.5-14.5); Red Blood Cell (RBC) Count 2.59 mill/uL (4.70-6.10); White Blood Cell (WBC) Count 15.4 thou/uL (4.8-10.8)
[2019-05-14 20:08] LABS: INR-International Normal Ratio 2.5; PTT 42.9 SEC (22.9-36.1); Prothrombin Time 27.2 SEC (12.0-14.7)
--- NOTE | 2019-05-14 20:21 | RAD ---
XR Chest 1 View Portable HISTORY: Syncopal episode. Aortic valve placed 2 weeks ago. COMPARISON: 04/29/2019 study. FINDINGS: Heart size is enlarged. There are postop sternotomy changes. The lungs are clear of infiltr ates. There are no signs of failure. IMPRESSION: Cardiomegaly.
[2019-05-14] MEDS ORDERED: Ondansetron PF 4 MG/2 ML Vial ONE (20:25)
[2019-05-14] MEDS ORDERED: Pantoprazole 40 MG VIAL ONE ×2 (20:25→21:35)
[2019-05-14 20:31] LABS: ALT (SGPT) 11 U/L (8-55); AST (SGOT) 11 U/L (5-34); Albumin 3.2 g/dL (3.5-5.0); Alkaline Phosphatase 46 U/L (40-150); Anion Gap 12 mmol/L (10-20); BUN (Urea Nitrogen) 39 mg/dL (8.9-20.6); Bilirubin, Total 0.2 mg/dL (0.2-1.2); Calc. Creatinine Clearance 0 mL/min (70-130); Calcium 7.6 mg/dL (7.8-10.44); Carbon Dioxide 23 mmol/L (22-29); Chloride 108 mmol/L (98-107); Estimated GFR-MDRD 63; Globulin 2.2 g/dL (2.4-3.5); Glucose 116 mg/dL (70-105); Potassium 4.3 mmol/L (3.5-5.1); Protein, Total 5.4 g/dL (6.0-8.3); Sodium 139 mmol/L (136-145)
[2019-05-14 20:45] LABS: CKMB 1.2 ng/mL (0-6.6)
[2019-05-14] MEDS ORDERED: Pantoprazole 80 MG, Admixture Fee 1 EACH in Sodium Chloride 0.9% 100 ML IVP SCH (21:15)
--- NOTE | 2019-05-14 21:33 | PDOC.EVN ---
Event Note - Event Note Event Note: [id number] H&P
[2019-05-14] MEDS ORDERED: Piperacillin/Tazobactam 3.375 GM VIAL ONE (21:35)
[2019-05-14 22:01] LABS: Hemoglobin 8.1 g/dL (14.0-18.0)
--- NOTE | 2019-05-14 22:59 | HP ---
CHIEF COMPLAINT: Syncope and bloody stools. HISTORY OF PRESENT ILLNESS: Mr. Stone is a 48-year-old male, who recently had aortic valve replacement, presented to the emergency room with syncope and bloody stools. The patient denies abdominal pain, chest pain or shortness of breath. When he regained his consciousness, he was on the toilet, having dark black bowel movement. The patient had aortic valve replacement 2 weeks ago, on Coumadin. Workup in the emergency room, the patient had an INR of 2.5. Hemoglobin is 8.6, down from 11. The patient is hypotensive with systolic blood pressure in the high 80s. The patient was started on IV proton pump inhibitor. ED physician consulted with his cardiovascular surgeon, who requires not to reverse his INR if possible. GI is consulted for urgent endoscopy. PAST MEDICAL HISTORY: 1. Recent aortic valve replacement. 2. Hypertension. 3. Myocardial infarction. PAST SURGICAL HISTORY: 1. Aortic artificial heart valve. 2. Knee scope. 3. Endoscopy. SOCIAL HISTORY: He drinks less than 5 drinks a day. He denies drug abuse, no smoking. FAMILY HISTORY: Reviewed and noncontributory. HOME MEDICATIONS: Please see home medication reconciliation form for updated medications. ALLERGIES: NO KNOWN ALLERGIES. REVIEW OF SYSTEMS: Review of 14 systems negative except what is mentioned in the history of present illness. PHYSICAL EXAMINATION: GENERAL: The patient is awake, alert, oriented, appears pale. HEAD: Normocephalic, atraumatic. NECK: Supple. CHEST: Fair bilateral air entry. HEART: S1, S2. Regular. ABDOMEN: Soft, nontender. Bowel sounds present. NEUROLOGIC: Awake, alert, oriented x3. PSYCHIATRIC: Normal mood. EXTREMITIES: No clubbing or cyanosis. LABORATORY DATA: As mentioned above in the history of present illness. ASSESSMENT AND PLAN: A 48-year-old male, who recently had aortic valve replacement, on Coumadin, presenting with syncope and GI bleeding. 1. Acute gastrointestinal bleeding. 2. Recent aortic valve replacement. 3. Anticoagulated. 4. Hypotension. 5. Coronary artery disease. PLAN: 1. Admit to ICU. 2. IV proton pump inhibitors. 3. Keep n.p.o. 4. Type and cross and transfuse packed RBCs. 5. IV fluids. 6. GI consult for urgent endoscopy. 7. Monitor hemoglobin and hematocrit. 8. Reconcile home medications. 9. DVT prophylaxis. 10. Case discussed with the patient, patient's family and emergency room physician. EXPECTED LENGTH OF STAY: Two midnights or more. Job ID: [id number]
[2019-05-14] MEDS ORDERED: Fentanyl 100 MCG/2 ML VIAL ONE (23:01)
--- NOTE | 2019-05-14 23:07 | CON ---
DATE OF CONSULTATION: 05/14/2019 CHIEF COMPLAINT: Vomited blood. HISTORY OF PRESENT ILLNESS: Mr. Stone is a 48-year-old man who underwent aortic valve replacement on 04/28/2019 with a mechanical valve. He has been doing well since surgery. He has been on warfarin. He did have his warfarin dose increased this past Wednesday. He took occasional Advil prior to his surgery, but he has not taken any Advil since his heart surgery. He has had no abdominal pain. No nausea or vomiting before this. No diarrhea, constipation, or blood in the stool. He had a normal bowel movement yesterday. This morning, he started feeling weak and dizzy. He took a nap for few hours and then after he got up, he had a bowel movement that was black. He had another black bowel movement and then a short time later passed out and then while he was unconscious, passed a bloody stool and then vomited bright red blood. He came to the emergency room for further care. He has had 3 or 4 black stools over the course of this event. The ER physician contacted the cardiothoracic surgeon on-call and his preference was that we not reverse the warfarin, but rather just hold it. The patient has had hypotension with blood pressure in the 78/65 range after 2 L of fluid and he is receiving 1 unit of blood currently. He is quite pale now, but his family reports that he was much white before receiving the fluid and blood. PAST MEDICAL HISTORY: Bicuspid aortic valve, hypertension. PAST SURGICAL HISTORY: Recent mechanical aortic valve replacement. FAMILY HISTORY: Negative for GI malignancies. He had an uncle with pancreatic cancer. SOCIAL HISTORY: No alcohol, tobacco, or drugs. ALLERGIES: NO KNOWN DRUG ALLERGIES. MEDICATIONS: Include warfarin and aspirin 81 mg daily, also digoxin, metoprolol. REVIEW OF SYSTEMS: Negative x10 systems reviewed except as stated in history of present illness. PHYSICAL EXAMINATION: VITAL SIGNS: Blood pressure 78/65, pulse is in the 80s, and afebrile. GENERAL: He is pale, no acute distress. Alert and oriented x3. HEENT: Eyes have no scleral icterus. Oropharynx is clear without lesions. No cervical or supraclavicular lymphadenopathy. LUNGS: Clear to auscultation bilaterally. HEART: Regular rate and rhythm without murmur. ABDOMEN: Soft, nontender, and nondistended. Bowel sounds are present. EXTREMITIES: No lower extremity edema. NEUROLOGIC: Cranial nerves are grossly intact. LABORATORY DATA: White blood cell count is 15.4, hemoglobin is 8.1, hemoglobin on 05/01/2019 was 11.5, platelets 456. INR 2.5. Creatinine 1.21, albumin 3.2, bilirubin 0.2, AST 11, ALT 11, alkaline phosphatase 46. IMPRESSION: 1. Hematemesis and melena consistent with acute upper gastrointestinal bleed. 2. Status post aortic mechanical valve replacement 2 weeks ago. RECOMMENDATIONS: 1. Cardiothoracic Surgery would prefer that we not reverse the patient's anticoagulation. Given that he is hypotensive and has had associated syncope and significant drop in his hemoglobin, will plan for more emergent endoscopy to try to find a blood vessel that can intervene on more immediately to prevent ongoing blood loss. 2. Proton pump inhibitor drip. 3. Has received fluid bolus and is receiving blood transfusion. Job ID: [id number]
[2019-05-14] MEDS: Fentanyl 100 MCG/2 ML VIAL SLOW IVP PRN ×2 (23:19→23:48)
--- NOTE | 2019-05-14 23:22 | OP ---
DATE OF PROCEDURE: 05/14/2019 PROCEDURE: Esophagogastroduodenoscopy with control of hemorrhage. PREOPERATIVE DIAGNOSIS: Acute upper gastrointestinal bleed, presenting with hematemesis, melena, syncope, and anemia. DESCRIPTION OF PROCEDURE: Informed consent was obtained from the patient. He was sedated with total intravenous anesthesia. The bite block was placed and the endoscope was advanced easily to the second portion of the duodenum and retroflexion was performed in the stomach. The esophagus was normal. The GE junction was normal. The stomach had blood and clot in the fundus that precluded visualization of that area, but the rest of the stomach was normal. The pylorus was normal. The first portion of the duodenum had a 1 cm thin ulcer at the junction between the first and second portions of the duodenum on the posterior lateral wall. There was an adherent clot. Epinephrine 1:10,000 a total of 5 mL were injected in 4 different sites around the ulcer. The overlying clot was dislodged and the underlying vessel was visualized. A hemoclip was placed across the vessel and closed, however, due to the fibrotic base of the ulcer, the clip just slid over the top of the ulcer base and did not clamp the vessel. The clip was just left to pass through the gastrointestinal tract. Ultimately, the underlying vessel was then cauterized with a 10-[place] probe at 18 dominguez with good hemostasis confirmed. There was some active oozing from the vessel once the overlying clot was dislodged. Again, good hemostasis was achieved with electrocautery. Air and fluid were suctioned from the stomach, however, all the fluid could not be removed from the fundus of the stomach. IMPRESSION: 1. 1 cm ulcer in the bulb of the duodenum at the junction between the first and second portions of the duodenum on the inferior wall. This was injected with 5 mL of epinephrine. The overlying blood clot was dislodged and there was mild active bleeding from the vessel in the ulcer base. The visible vessel was then cauterized with a 10-[place] probe with good hemostasis confirmed. Hemoclip could not be placed as the clip would not grasp the fibrotic ulcer bed. 2. Blood and clot in the fundus of the stomach precludes visualization of this area. 3. Otherwise normal EGD. RECOMMENDATIONS: 1. Proton pump inhibitor, IV drip. 2. Follow trend of the hemoglobin. 3. Check H. pylori stool antigen. Job ID: [id number]
--- NOTE | 2019-05-14 23:57 | CT ---
CT Abdomen Pelvis WO Con HISTORY: Patient is undergone cautery of a bleeding duodenal ulcer. Subsequently complaining of sever e abdominal pain. Evaluation for perforation. COMPARISON: None. FINDINGS: The lung bases show some reticular scarring. Aortic valve replacement is noted. The liver, spleen, pancreas and gallbladder regions appear unremarkable. Right and left adrenal glands and right and left kidneys are normal in size. The appendix is retrocec al in location and normal in appearance. No free fluid is seen within the abdomen. No signs for perforation. I do not see any definite signs of retroperitoneal air. In the 1st-2nd portion of duoden um there are some tiny dots of air which are along the duodenal wall and these are probably intraluminal. No free air. No free fluid in the pelvis or other abnormalities. IMPRESSION: No evidence for perforation.
[2019-05-15] MEDS: Fentanyl 100 MCG/2 ML VIAL SLOW IVP PRN
[2019-05-15 00:02] LABS: Hemoglobin 8.4 g/dL (14.0-18.0)
[2019-05-15] MEDS ORDERED: HYDROmorphone 2 MG TAB PO SCH (00:45)
[2019-05-15] MEDS: Morphine 4 MG/ML VIAL SLOW IVP PRN (00:48)
[2019-05-15] MEDS: Ondansetron PF 4 MG/2 ML Vial IVP PRN (00:51)
[2019-05-15] MEDS: Sodium Chloride 0.9% 1,000 ML IV SCH ×3 (00:57→14:44)
[2019-05-15 01:42] VITALS: BMI 38.5
[2019-05-15 04:14] LABS: INR-International Normal Ratio 2.5; Prothrombin Time 26.9 SEC (12.0-14.7)
[2019-05-15 04:23] LABS: ALT (SGPT) 12 U/L (8-55); AST (SGOT) 12 U/L (5-34); Alkaline Phosphatase 40 U/L (40-150); Anion Gap 11 mmol/L (10-20); BUN (Urea Nitrogen) 36 mg/dL (8.9-20.6); Bilirubin, Total 0.3 mg/dL (0.2-1.2); Calc. Creatinine Clearance 148 mL/min (70-130); Calcium 7.5 mg/dL (7.8-10.44); Carbon Dioxide 23 mmol/L (22-29); Chloride 108 mmol/L (98-107); Estimated GFR-MDRD 79; Globulin 2.3 g/dL (2.4-3.5); Glucose 146 mg/dL (70-105); Potassium 4.9 mmol/L (3.5-5.1); Protein, Total 5.3 g/dL (6.0-8.3); Sodium 137 mmol/L (136-145)
[2019-05-15] MEDS: Piperacillin/Tazobactam 3.375 GM in Sodium Chloride 0.9% 100 ML IVPB SCH ×2 (04:24→10:35)
[2019-05-15 04:35] LABS: #Eosinphils 0.1 thou/uL (0.0-0.7); #Lymphocytes 1.6 thou/uL (1.20-3.40); #Monocytes 0.8 thou/uL (0.11-0.59); #Neutrophils 10.8 thou/uL (1.40-6.50); %Basophils 0.1 % (0.0-1.0); %Eosinophils 0.5 % (0.0-10.0); %Lymphocytes 11.9 % (21.0-51.0); %Neutrophils 81.5 % (42.0-75.0); Hemoglobin 7.7 g/dL (14.0-18.0); Mean Corpuscular HGB CONC 34.2 g/dL (32.0-36.0); Mean Corpuscular Hemoglobin 31.6 pg (27.0-31.0); Mean Corpuscular Volume 92.3 fL (78.0-98.0); Mean Platelet Volume 7.2 fL (7.4-10.4); Platelet Count 365 thou/uL (130-400); RBC Distribution Width 12.7 % (11.5-14.5); Red Blood Cell (RBC) Count 2.44 mill/uL (4.70-6.10); White Blood Cell (WBC) Count 13.3 thou/uL (4.8-10.8)
[2019-05-15] MEDS: Pantoprazole 80 MG in Sodium Chloride 0.9% 100 ML IVP SCH ×2 (05:28→17:08)
--- NOTE | 2019-05-15 09:16 | CON ---
DATE OF CONSULTATION: HISTORY OF PRESENT ILLNESS: Jefe Stone is a 48-year-old gentleman, status post aortic valve replacement secondary to bicuspid aortic valve, who presented with GI bleed. He has undergone appropriate intervention. Stools are still bloody. This morning, he said he is feeling better, still having some vague pain in the abdomen, but it is much better. No shortness of breath. PAST MEDICAL HISTORY: Hypertension, bicuspid aortic valve. MEDICATIONS: Include: 1. Digoxin 125. 2. [place]. 3. Metoprolol 25. 4. Coumadin 5. PAST SURGICAL HISTORY: Endoscopy, aortic valve surgery, and duodenal ulcer in the bulb of the duodenum. 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 FAMILY HISTORY: Unremarkable. REVIEW OF SYSTEMS: Ten-point negative. PHYSICAL EXAMINATION: VITAL SIGNS: Blood pressure 124/80, pulse 80, respiratory rate 18, and saturations 96%. CHEST: No wheezing or crackles. CARDIAC: Normal S1 and S2. No gallops. ABDOMEN: No masses. LABORATORY DATA: Lytes normal. H and H of 7 and 22, platelet count is normal. IMPRESSION: 1. Gastrointestinal bleed, duodenal ulcer. 2. Recent aortic valve surgery. He is on full-dose anticoagulation. His INR this morning is within therapeutic range. His BNP is elevated. PLAN: Continue supportive care. Restart home medications when okay with GI. Primary/Critical Care will follow in the ICU. Incidentally, his chest x-ray was clear. Job ID: [id number]
--- NOTE | 2019-05-15 12:57 | PRG ---
DATE OF SERVICE: 05/15/2019 SUBJECTIVE: Mr. Stone is still passing some black stools. He feels much better today. He had significant abdominal pain after the EGD and cautery of the duodenal ulcer; however, that has pretty much resolved today. He is tolerating a clear liquid diet well. OBJECTIVE: VITAL SIGNS: Temperature is 98.7, blood pressure is 131/82, pulse is 69. GENERAL: He is in no acute distress. Alert and oriented x3. LUNGS: Clear to auscultation bilaterally. HEART: Regular rate and rhythm without murmur. ABDOMEN: Soft, nontender, nondistended. Bowel sounds are present. EXTREMITIES: No lower extremity edema. LABORATORY DATA: His hemoglobin this morning was 7.7. That was after 1 unit transfusion last night. IMPRESSION: 1. Acute upper gastrointestinal bleed secondary to duodenal ulcer, status post cautery of a visible vessel in the duodenal ulcer. 2. Anemia of acute blood loss. His hemoglobin is 7.7 this morning after 1 unit transfusion. He was given a second unit following that CBC. We will recheck his hemoglobin tomorrow morning. 3. Status post mechanical aortic valve replacement 2 weeks ago, on anticoagulation. His INR is 2.5 this morning. Warfarin is currently held. RECOMMENDATIONS: 1. Continue proton pump inhibitor drip for 72 hours from the procedure time. 2. Transition to oral PPI twice daily after that. 3. Advance to a full liquid diet. 4. Discontinue antibiotics. Job ID: [id number]
--- NOTE | 2019-05-15 14:29 | PDOC.HOSPP ---
- Subjective Subjective: Seen and examined in the intensive care unit. No further episodes of bleeding. Denies chest pain. Breathing well on room air. Still feeling weak and tired, no further episodes of syncope though. - Objective Vital Signs & Weight: Vital Signs (12 hours) Temp Pulse Resp BP Pulse Ox 05/15/19 12:00 98.7 F 05/15/19 09:00 98.7 F 80 18 112/77 100 05/15/19 08:00 100 05/15/19 07:00 99.2 F 05/15/19 05:25 99.1 F 21 H 99 05/15/19 04:00 98.9 F Weight Weight 260 lb 12.909 oz Most Recent Monitor Data Heart Rate from ECG 87 NIBP 143/92 NIBP BP-Mean 109 Respiration from ECG 18 SpO2 92 I&O: 05/14/19 05/15/19 05/16/19 06:59 06:59 06:59 Intake Total 1190.1 1310 Output Total 550 875 Balance 640.1 435 Result Diagrams: 05/15/19 03:35 05/15/19 03:35 Radiology Reviewed by me: Yes (CT abdomen) Hospitalist ROS - Review of Systems All other systems reviewed; all pertinent +/- noted in HPI/Subj - Medication Medications: Active Medications Generic Name Dose Route Start Last Admin Trade Name Freq PRN Reason Stop Dose Admin Sodium Chloride 1,000 mls @ 100 mls/hr 05/14/19 21:15 05/15/19 10:36 Normal Saline 0.9% IV Not Given .Q10H MERLENE Pantoprazole Sodium 80 mg/ 100 mls @ 10 mls/hr 05/14/19 21:15 05/15/19 05:28 Sodium Chloride IVP 100 mls INF MERLENE Administration Morphine Sulfate 4 mg 05/15/19 00:40 05/15/19 00:48 Morphine SLOW IVP 4 mg Q4H PRN Administration Moderate to Severe Pain (6-10) Ondansetron HCl 4 mg 05/14/19 23:01 05/15/19 00:51 Zofran IVP 4 mg Q6H PRN Administration Nausea/Vomiting - Exam General Appearance: NAD, awake alert ENT: moist mucosa Neck: symmetric, no lymphadenopathy Heart: RRR, no gallops, no rubs, murmur present Respiratory: CTAB, no wheezes, no rales, no ronchi Gastrointestinal: soft, non-tender, non-distended, no guarding, no rigidity Extremities: no edema Skin: no lesions Neurological: cranial nerve grossly intact, normal sensation to touch, no weakness Musculoskeletal: normal strength, no muscle wasting Psychiatric: normal affect, A&O x 3 Hosp A/P (1) GI bleeding Code(s): K92.2 - GASTROINTESTINAL HEMORRHAGE, UNSPECIFIED Status: Acute (2) Syncope Code(s): R55 - SYNCOPE AND COLLAPSE Status: Acute (3) Atrial flutter Code(s): I48.92 - UNSPECIFIED ATRIAL FLUTTER Status: Acute (4) Severe aortic valve stenosis Code(s): I35.0 - NONRHEUMATIC AORTIC (VALVE) STENOSIS Status: Acute (5) Type 2 myocardial infarction Code(s): I21.A1 - MYOCARDIAL INFARCTION TYPE 2 Status: Acute (6) ARIANNA (obstructive sleep apnea) Code(s): G47.33 - OBSTRUCTIVE SLEEP APNEA (ADULT) (PEDIATRIC) Status: Chronic (7) Obesity (BMI 30-39.9) Code(s): E66.9 - OBESITY, UNSPECIFIED Status: Chronic - Plan Plan: ICU gastroenterology consultation, recommendations appreciated pulmonary/critical-care consultation, recommendations appreciated status post endoscopy, report noted with intervention performed with injection of epinephrine continue PPI drip for 72 hours after procedure, then transition status post transfusion of two units of packed red blood cells restart oral and coagulation/continue when okay with G.I. continue other home medications as able replace electrolytes as needed
[2019-05-16] MEDS: Pantoprazole 80 MG in Sodium Chloride 0.9% 100 ML IVP SCH ×2 (03:01→14:08)
[2019-05-16] MEDS: Sodium Chloride 0.9% 1,000 ML IV SCH ×2 (03:01→10:53)
--- NOTE | 2019-05-16 08:42 | PRG ---
DATE OF SERVICE: 05/16/2019 SUBJECTIVE: This morning, no further GI bleed, no pain, no shortness of breath. OBJECTIVE: VITAL SIGNS: Blood pressure 128/80, pulse 80, respirations 16. CHEST: Decreased breath sounds. No wheezing. CARDIAC: Normal S1 and S2. No murmur. ABDOMEN: No gallop. LABORATORY DATA: No lab was ordered. One is being ordered at this stage. ASSESSMENT AND PLAN: Status post prosthetic aortic valve, gastrointestinal bleed, bleeding duodenal ulcer. Notify Cardiology about the admission. PT, supportive care. He can probably be transferred out of the ICU. Job ID: [id number]
[2019-05-16 08:47] LABS: #Eosinphils 0.4 thou/uL (0.0-0.7); #Lymphocytes 1.6 thou/uL (1.20-3.40); #Monocytes 0.5 thou/uL (0.11-0.59); #Neutrophils 6.7 thou/uL (1.40-6.50); %Basophils 0.5 % (0.0-1.0); %Eosinophils 4.3 % (0.0-10.0); %Monocytes 5.3 % (0.0-10.0); %Neutrophils 72.8 % (42.0-75.0); Hemoglobin 7.2 g/dL (14.0-18.0); Mean Corpuscular HGB CONC 33.5 g/dL (32.0-36.0); Mean Corpuscular Hemoglobin 32.5 pg (27.0-31.0); Mean Corpuscular Volume 96.8 fL (78.0-98.0); Mean Platelet Volume 6.7 fL (7.4-10.4); Platelet Count 316 thou/uL (130-400); RBC Distribution Width 12.9 % (11.5-14.5); Red Blood Cell (RBC) Count 2.21 mill/uL (4.70-6.10); White Blood Cell (WBC) Count 9.3 thou/uL (4.8-10.8)
[2019-05-16 09:01] LABS: INR-International Normal Ratio 2.1; Prothrombin Time 23.5 SEC (12.0-14.7)
[2019-05-16 09:08] LABS: Anion Gap 9 mmol/L (10-20); BUN (Urea Nitrogen) 15 mg/dL (8.9-20.6); Calc. Creatinine Clearance 145 mL/min (70-130); Calcium 7.6 mg/dL (7.8-10.44); Carbon Dioxide 24 mmol/L (22-29); Chloride 108 mmol/L (98-107); Estimated GFR-MDRD 77; Glucose 143 mg/dL (70-105); Potassium 3.9 mmol/L (3.5-5.1); Sodium 137 mmol/L (136-145)
[2019-05-16] MEDS ORDERED: Tetrahydrozoline 0.05% OPTH 15 ML BOT EA EYE PRN (12:38)
[2019-05-16] MEDS ORDERED: diphenhydrAMINE 50 MG/ML VIAL IVP SCH (12:45)
--- NOTE | 2019-05-16 17:10 | CON ---
DATE OF CONSULTATION: REASON FOR CONSULTATION: Recent mechanical aortic valve and GI bleed. HISTORY OF PRESENT ILLNESS: Mr. Stone is a 48-year-old gentleman, who was seen and evaluated several weeks ago. He had severe aortic stenosis, likely from a bicuspid valve. He underwent successful mechanical valve placement. He has been on Coumadin. He states that he has been doing fine up until a day or two ago. He developed weakness and fatigue. This was shortly after adjusting his Coumadin. No chest pain or pressure noted. He did develop melena. He would proceed to the emergency room. He underwent EGD and appeared to have a visible vessel with a duodenal ulcer present. This was successfully cauterized. He has currently been stabilized. He has received a total of 3 units of packed red blood cells. PAST MEDICAL HISTORY: As above. PAST SURGICAL HISTORY: Status post AVR. SOCIAL HISTORY: No current tobacco or alcohol use. ALLERGIES: NONE. REVIEW OF SYSTEMS: A 10-point review of systems is reviewed as above, otherwise negative. PHYSICAL EXAMINATION: GENERAL: Patient is a pleasant male who is in no acute distress. The patient appears their stated age. VITAL SIGNS: Blood pressure 133/81, pulse 81, respirations 20. NEUROLOGIC: The patient is alert and oriented x3 with no focal neurologic deficits. HEENT: Sclerae without icterus. Mouth has moist mucous membranes with normal pallor. NECK: No JVD. Carotid upstroke brisk. No bruits bilaterally. LUNGS: Clear to auscultation with unlabored respirations. BACK: No scoliosis or kyphosis. CARDIAC: Regular rate and rhythm with aortic valve click present. Normal S1 and S2. No S3 or S4 noted. No significant rubs, murmurs, thrills, or gallops noted throughout the precordium. PMI is not displaced. There is no parasternal heave. ABDOMEN: Soft, nontender, nondistended. No peritoneal signs present. No hepatosplenomegaly. No abnormal striae. EXTREMITIES: 2+ femoral and 2+ dorsalis pedis pulses. No cyanosis, clubbing, or edema. SKIN: No gross abnormalities. PERTINENT LABORATORY DATA: Hemoglobin 7.2, white blood cell count 9.3. Creatinine 1.02. IMPRESSION: 1. Recent gastrointestinal bleed. 2. Mechanical aortic valve. RECOMMENDATIONS: I discussed the case with Dr. Oscar Stone. I would like to keep his INR at the lower range of normal between 2 and 3. He appears to slow down in bleeding. We will continue to monitor closely his hemoglobin. We will continue to monitor closely with you. Job ID: [id number]
--- NOTE | 2019-05-16 18:25 | PDOC.HOSPP ---
- Subjective Encounter Date: 05/16/19 Encounter Time: 17:30 Subjective: Itching in eye during third unit of blood, better after benadryl. One dark stool this evening, no abdominal pain or cramps. No nausea, vomiting. He is hungry, tolerating full liquids. No CP or palpitations. No syncope. Just "feels weak" when getting OOB to commode. - Objective Vital Signs & Weight: Vital Signs (12 hours) Temp Pulse Resp BP Pulse Ox 05/16/19 16:00 100.7 F H 05/16/19 15:25 100.7 F H 81 24 H 145/84 H 100 05/16/19 15:00 99.8 F H 05/16/19 13:00 99.4 F 05/16/19 12:00 99.6 F 05/16/19 11:40 98.8 F 82 23 H 138/84 100 05/16/19 11:00 98.8 F 05/16/19 08:00 100 05/16/19 07:00 99.1 F Weight Weight 260 lb 12.909 oz Most Recent Monitor Data Heart Rate from ECG 78 NIBP 136/90 NIBP BP-Mean 105 Respiration from ECG 26 SpO2 96 I&O: 05/15/19 05/16/19 05/17/19 06:59 06:59 06:59 Intake Total 1190.1 4137 1430 Output Total 550 2150 1300 Balance 640.1 1987 130 Result Diagrams: 05/16/19 08:42 05/16/19 08:42 Hospitalist ROS - Medication Medications: Active Medications Generic Name Dose Route Start Last Admin Trade Name Freq PRN Reason Stop Dose Admin Sodium Chloride 1,000 mls @ 100 mls/hr 05/14/19 21:15 05/16/19 10:53 Normal Saline 0.9% IV 1,000 mls .Q10H MERLENE Administration Pantoprazole Sodium 80 mg/ 100 mls @ 10 mls/hr 05/14/19 21:15 05/16/19 14:08 Sodium Chloride IVP 100 mls INF MERLENE Administration Morphine Sulfate 4 mg 05/15/19 00:40 05/15/19 00:48 Morphine SLOW IVP 4 mg Q4H PRN Administration Moderate to Severe Pain (6-10) Ondansetron HCl 4 mg 05/14/19 23:01 05/15/19 00:51 Zofran IVP 4 mg Q6H PRN Administration Nausea/Vomiting - Exam General Appearance: awake alert Eye - other findings: pale ENT: moist mucosa Neck: supple Heart: RRR Heart - other findings: audible click aortic area; sternal wound clean/dry Respiratory: CTAB, no rales Gastrointestinal: soft, non-tender Extremities: no edema Skin: no rashes Neurological: no new deficit Musculoskeletal: normal strength Psychiatric: A&O x 3 Hosp A/P (1) Duodenal ulcer Status: Acute (2) Upper GI bleed Code(s): K92.2 - GASTROINTESTINAL HEMORRHAGE, UNSPECIFIED Status: Acute (3) History of aortic valve replacement Code(s): Z95.2 - PRESENCE OF PROSTHETIC HEART VALVE Status: Acute (4) Severe aortic valve stenosis Code(s): I35.0 - NONRHEUMATIC AORTIC (VALVE) STENOSIS Status: Acute (5) Type 2 myocardial infarction Code(s): I21.A1 - MYOCARDIAL INFARCTION TYPE 2 Status: Acute (6) ARIANNA (obstructive sleep apnea) Code(s): G47.33 - OBSTRUCTIVE SLEEP APNEA (ADULT) (PEDIATRIC) Status: Chronic (7) Atrial flutter with rapid ventricular response Code(s): I48.92 - UNSPECIFIED ATRIAL FLUTTER Status: Resolved Plan: paroxysmal (8) Anemia due to blood loss, acute Code(s): D62 - ACUTE POSTHEMORRHAGIC ANEMIA Status: Acute - Plan Plan: Heme - Beginning unit #4 this evening, premedicate with benadryl, check AM CBC. AM PT/INR ordered. Coumadin not yet restarted, cardiology note reviewed, perhaps tomorrow pending GI input? GI - Protonix infusion, to complete 72 hours post procedure on 05/17; then po bid FEN - advance diet (tolerating full liquids x 24 hours) Cards - restart home metoprolol with strict hold parameters for SBP<120, restart home digoxin (history of atrial tachyarrhythmias) Out of ICU tomorrow, would prefer to keep in ICU overnight for 4th unit transfusion
--- NOTE | 2019-05-16 18:34 | PRG ---
DATE OF SERVICE: 05/16/2019 SUBJECTIVE: Mr. Stone still has passed black stool today. He has no abdominal pain, but he feels weak. He has had no nausea or vomiting. He is tolerating a full liquid diet. OBJECTIVE: VITAL SIGNS: Maximum temperature 100.7, blood pressure 136/90, and pulse 78. GENERAL: He is in no acute distress. He is alert and oriented x3. LUNGS: Clear to auscultation bilaterally. HEART: Regular rate and rhythm without murmur. ABDOMEN: Soft, nontender, and nondistended. Bowel sounds are present. EXTREMITIES: No lower extremity edema. LABORATORY DATA: Hemoglobin is 7.2 today. This is down from 7.7 yesterday despite 1 unit transfusion since then. He also had a unit transfused prior to the lab yesterday morning. IMPRESSION: 1. Duodenal ulcer with visible vessel actively bleeding, status post electrocautery. 2. Anemia of acute blood loss. 3. Status post replacement of aortic valve with a mechanical valve 2 weeks ago. He is unable to hold anticoagulation at this point. His INR is 2.1 today. RECOMMENDATIONS: 1. Continue proton pump inhibitor drip. 2. He will receive a total of 2 units of transfusion today. 3. Recheck his hemoglobin in the morning. 4. If his hemoglobin responds appropriately to the transfusion, he will likely need to restart his warfarin tomorrow. 5. Continue the full liquids for now. Job ID: [id number]
[2019-05-16] MEDS ORDERED: Acetaminophen 325 MG TAB PO PRN (18:35)
[2019-05-16] MEDS: Metoprolol Tartrate 25 MG TAB PO SCH (21:53)
[2019-05-17] MEDS: Pantoprazole 80 MG in Sodium Chloride 0.9% 100 ML IVP SCH ×2 (00:34→15:50)
[2019-05-17 05:36] LABS: #Eosinphils 0.6 thou/uL (0.0-0.7); #Lymphocytes 2.3 thou/uL (1.20-3.40); #Monocytes 0.7 thou/uL (0.11-0.59); #Neutrophils 5.6 thou/uL (1.40-6.50); %Basophils 0.5 % (0.0-1.0); %Eosinophils 6.7 % (0.0-10.0); %Lymphocytes 24.5 % (21.0-51.0); %Neutrophils 60.4 % (42.0-75.0); Hemoglobin 10.1 g/dL (14.0-18.0); INR-International Normal Ratio 1.6; Mean Corpuscular HGB CONC 34.1 g/dL (32.0-36.0); Mean Corpuscular Hemoglobin 32.5 pg (27.0-31.0); Mean Corpuscular Volume 95.1 fL (78.0-98.0); Mean Platelet Volume 6.8 fL (7.4-10.4); Platelet Count 358 thou/uL (130-400); Prothrombin Time 18.7 SEC (12.0-14.7); RBC Distribution Width 13.3 % (11.5-14.5); White Blood Cell (WBC) Count 9.3 thou/uL (4.8-10.8)
[2019-05-17 05:54] LABS: Anion Gap 10 mmol/L (10-20); BUN (Urea Nitrogen) 10 mg/dL (8.9-20.6); Calc. Creatinine Clearance 149 mL/min (70-130); Calcium 8.3 mg/dL (7.8-10.44); Carbon Dioxide 26 mmol/L (22-29); Chloride 107 mmol/L (98-107); Estimated GFR-MDRD 80; Glucose 95 mg/dL (70-105); Sodium 139 mmol/L (136-145)
--- NOTE | 2019-05-17 07:00 | PDOC.CPN ---
- Subjective Date: 05/17/19 Time: 09:38 Interval history: Left arm numbness and pain with movement. IV noted tot he left arm, now DC. Pt INR this am 1.6. INR yesterday 2.2. - Objective Allergies/Adverse Reactions: Allergies Allergy/AdvReac Type Severity Reaction Status Date / Time No Known Allergies Allergy Unverified 04/22/19 06:50 Visit Medications: Current Medications Acetaminophen (Tylenol) 650 mg PO Q6H PRN PRN Reason: fever or pain Last Admin: 05/16/19 19:08 Dose: 650 mg Digoxin (Lanoxin) 0.25 mg PO DAILY [facility] Diphenhydramine HCl (Benadryl) 25 mg PO Q6H PRN PRN Reason: Itching & Insomnia Pantoprazole Sodium 80 mg/ (Sodium Chloride) 100 mls @ 10 mls/hr IVP INF MERLENE Last Admin: 05/17/19 00:34 Dose: 100 mls Metoprolol Tartrate (Lopressor) 25 mg PO BID [facility] Last Admin: 05/16/19 21:53 Dose: 25 mg Morphine Sulfate (Morphine) 4 mg SLOW IVP Q4H PRN PRN Reason: Moderate to Severe Pain (6-10) Last Admin: 05/15/19 00:48 Dose: 4 mg Ondansetron HCl (Zofran) 4 mg IVP Q6H PRN PRN Reason: Nausea/Vomiting Last Admin: 05/15/19 00:51 Dose: 4 mg Sodium Chloride (Flush - Normal Saline) 10 ml IVF PRN PRN PRN Reason: Saline Flush Tetrahydrozoline HCl (Visine Ac 0.05% Opt) 0 drop EA EYE PRN PRN PRN Reason: Dry Eyes Vital Signs & Weight: Vital Signs Temp Pulse Resp BP Pulse Ox 05/17/19 04:00 98.4 F 05/17/19 00:00 98.3 F 05/16/19 22:37 98.1 F 64 18 137/85 96 05/16/19 20:00 99.6 F 96 05/16/19 19:23 99.6 F 05/16/19 19:00 100.7 F H Weight 260 lb 12.909 oz - Physical Exam General: alert & oriented x3 (normal aortic valve click), appears well, no apparent distress HEENT: mucus membranes moist, normocephaly Cardiac: regular rate and rhythm, no murmur, other (aortic vavle click present) Lungs: clear to auscultation, normal breath sounds, normal exam, no wheeze, rales, rhonchi Abdomen: soft, non-tender Skin: clear Musculoskeletal: normal range of motion, no pain - Labs Result Diagrams: 05/17/19 05:12 05/17/19 05:12 Troponin/CKMB CK-MB (CK-2) 1.2 ng/mL (0-6.6) 05/14/19 19:50 Troponin I 0.032 ng/mL (< 0.028) H 05/14/19 19:50 - Problem (1) Upper GI bleed Code(s): K92.2 - GASTROINTESTINAL HEMORRHAGE, UNSPECIFIED Assessment and Plan: Hb stable after 4 units of PRBC No recurrent bleeding Spoke with Dr. Stone Ok to resume lovenox, coumadin Check CT head and left UE If CT negative, start lovenox (2) History of aortic valve replacement Code(s): Z95.2 - PRESENCE OF PROSTHETIC HEART VALVE Assessment and Plan: Restart coumadin when ok with GI now that pt is stable Benefits will need to outweigh the risks See above (3) ARIANNA (obstructive sleep apnea) Code(s): G47.33 - OBSTRUCTIVE SLEEP APNEA (ADULT) (PEDIATRIC) Assessment and Plan: outapt sleep study not performed yet
[2019-05-17] MEDS: Digoxin 0.25 MG TAB PO SCH (09:32)
[2019-05-17] MEDS: Metoprolol Tartrate 25 MG TAB PO SCH ×2 (09:32→21:16)
--- NOTE | 2019-05-17 09:52 | PRG ---
DATE OF SERVICE: 05/17/2019 SUBJECTIVE: This morning, awake, alert, and responsive. OBJECTIVE: VITAL SIGNS: Temperature 98, pulse 70, respirations 20, saturations 96% on room air, blood pressure 132/74 CHEST: Decreased breath sounds without wheezing. CARDIAC: Normal S1 and S2. No gallops. ABDOMEN: No masses. LABORATORY DATA: H and H are stable at 10 and 29. ASSESSMENT: 1. Gastrointestinal bleed. 2. Status post aortic valve replacement. 3. Mild allergic reaction to blood transfusion, though this morning, he is back to his baseline. PLAN: Disposition as per GI. Pulmonary will follow at a distance. Call if needed. Job ID: [id number] MTDD
--- NOTE | 2019-05-17 10:20 | ULT ---
EXAM: US Venous Doppler Lt upper extremity Unilat PROVIDED CLINICAL HISTORY: Left upper extremity pain COMPARISON: None FINDINGS: Grayscale, color-flow, Doppler evaluation as well as spectral analysis of the left upper extremity ve nous structures is performed with 2-D imaging. There is normal luminal compressibility and flow seen within the visualized left internal jugular vei n as well as the visualized left axillary, brachial, radial, and ulnar veins. Normal flow is present in the visualized left subclavian vein. There is normal luminal compressibility and flow seen within the left upper extremity basilic vein. There is increased luminal echogenicity, dilatation, and diminished flow within the left upper extrem ity cephalic vein extending from the level of the antecubital fossa to the midportion of the arm. There is normal flow and lumen compressibility involving the visualized left cephalic vein distal to the level of the antecubital fossa. This is a superficial vein. There is mild subcutaneous edema involving the left upper extremity. IMPRESSION: 1. No evidence of a DVT involving the visualized deep venous structures of the left upper extremity. 2. Nonocclusive thrombus involving the left upper extremity cephalic vein from the level of the antec ubital fossa to the mid left arm. This is a superficial vein. 3. Mild subcutaneous edema in the left upper extremity.
--- NOTE | 2019-05-17 11:04 | CT ---
CT BRAIN WITHOUT CONTRAST: HISTORY: Left arm numbness. FINDINGS: No evidence of acute infarct, hemorrhage, midline shift or abnormal extraaxial fluid collections is s een. The ventricular size is normal and the basilar cisterns are patent. The bony calvarium is inta ct. The visualized paranasal sinuses and mastoid air cells are well aerated. 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 IMPRESSION: No CT evidence of acute intracranial process. POS: OFF
[2019-05-17] MEDS ORDERED: Enoxaparin Sodium 120 MG/0.8 ML SYRINGE SC SCH (11:30)
--- NOTE | 2019-05-17 15:40 | PRG ---
DATE OF SERVICE: 05/17/2019 SUBJECTIVE: Mr. Stone is tolerating a solid diet without any problems. He has had no further overt GI bleeding. He has had some swelling in his left arm and a smaller amount in his right arm. OBJECTIVE: VITAL SIGNS: His temperature is 99.5, pulse 80, and blood pressure 139/80. GENERAL: He is in no acute distress. Alert and oriented x3. LUNGS: Clear to auscultation bilaterally. HEART: Regular rate and rhythm with a 2/6 systolic murmur at the right upper sternal border. LUNGS: Clear to auscultation bilaterally. ABDOMEN: Soft, nontender, and nondistended. Bowel sounds are present. EXTREMITIES: No lower extremity edema. LABORATORY DATA: Hemoglobin is 10.1 today. INR is 1.6. IMPRESSION: 1. Acute gastrointestinal bleed secondary to duodenal ulcer status post electrocautery of a visible vessel in the base of the ulcer. He has had no further overt bleeding now. 2. Anemia of acute blood loss, status post 4 units transfusion. 3. Status post recent aortic valve replacement. He is requiring full anticoagulation. His INR is down below too today. It is okay to restart Lovenox full dose today and restart warfarin. He should also be able to restart aspirin at this point. RECOMMENDATIONS: 1. Continue the proton pump inhibitor drip through tomorrow morning. 2. Change to pantoprazole 40 mg p.o. twice daily tomorrow morning. 3. Okay to restart full anticoagulation on aspirin. 4. Follow up in GI clinic in 1 month. I will sign off for now. Please call if GI can be of assistance. Job ID: [id number]
--- NOTE | 2019-05-17 17:54 | PDOC.HOSPP ---
- Subjective Encounter Date: 05/17/19 Encounter Time: 11:00 Subjective: Mr. Stone was seen today in follow-up GI bleed and recent aortic valve replacement. He notes some swelling in the left upper extremity. - Objective Vital Signs & Weight: Vital Signs (12 hours) Temp Pulse Resp BP Pulse Ox 05/17/19 15:50 99.5 F 79 18 145/75 H 99 05/17/19 11:30 99.5 F 80 16 139/80 97 05/17/19 07:43 98.4 F 75 16 139/84 99 05/17/19 06:40 98.0 F 71 20 150/99 H 96 Weight Weight 260 lb 12.909 oz Most Recent Monitor Data Heart Rate from ECG 68 NIBP 145/90 NIBP BP-Mean 108 Respiration from ECG 23 SpO2 96 I&O: 05/16/19 05/17/19 05/18/19 06:59 06:59 06:59 Intake Total 4137 3859 Output Total 2150 4525 Balance 1986 - Result Diagrams: 05/17/19 05:12 05/17/19 05:12 Hospitalist ROS - Medication Medications: Active Medications Generic Name Dose Route Start Last Admin Trade Name Freq PRN Reason Stop Dose Admin Acetaminophen 650 mg 05/16/19 18:35 05/16/19 19:08 Tylenol PO 650 mg Q6H PRN Administration fever or pain Digoxin 0.25 mg 05/17/19 09:00 05/17/19 09:32 Lanoxin PO 0.25 mg DAILY MERLENE Administration Pantoprazole Sodium 80 mg/ 100 mls @ 10 mls/hr 05/14/19 21:15 05/17/19 15:50 Sodium Chloride IVP 100 mls INF MERLENE Administration Metoprolol Tartrate 25 mg 05/16/19 21:00 05/17/19 09:32 Lopressor PO 25 mg BID MERLENE Administration Morphine Sulfate 4 mg 05/15/19 00:40 05/15/19 00:48 Morphine SLOW IVP 4 mg Q4H PRN Administration Moderate to Severe Pain (6-10) Ondansetron HCl 4 mg 05/14/19 23:01 05/15/19 00:51 Zofran IVP 4 mg Q6H PRN Administration Nausea/Vomiting - Exam Eye: PERRL, anicteric sclera Heart: RRR, no murmur, no gallops, no rubs, normal peripheral pulses Respiratory: CTAB, no wheezes, no rales, no ronchi, normal chest expansion, no tachypnea, normal percussion Gastrointestinal: soft, non-tender, non-distended, normal bowel sounds, no palpable masses, no hepatomegaly, no splenomegaly Extremities: no cyanosis, no clubbing, 1+ LE edema (Swelling in the left upper extremity, radial and ulnar pulses intact) Hosp A/P (1) Anemia due to blood loss, acute Code(s): D62 - ACUTE POSTHEMORRHAGIC ANEMIA Status: Acute (2) Duodenal ulcer Status: Acute (3) History of aortic valve replacement Code(s): Z95.2 - PRESENCE OF PROSTHETIC HEART VALVE Status: Chronic (4) Atrial flutter Code(s): I48.92 - UNSPECIFIED ATRIAL FLUTTER Status: Chronic - Plan * Duodenal Ulcer- continue Protonix drip * Aortic valve replacement- continue to hold anticoagulation * His H&H has remained stable * disposition as per Cardiology and GI
[2019-05-17] MEDS: Enoxaparin Sodium 120 MG/0.8 ML SYRINGE SC SCH (21:17)
[2019-05-18] MEDS: Pantoprazole 80 MG in Sodium Chloride 0.9% 100 ML IVP SCH (02:17)
[2019-05-18] MEDS: Ondansetron PF 4 MG/2 ML Vial IVP PRN (02:25)
[2019-05-18] MEDS: Morphine 4 MG/ML VIAL SLOW IVP PRN (04:01)
--- NOTE | 2019-05-18 07:54 | PDOC.CPN ---
- Subjective Date: 05/18/19 Time: 07:52 - Objective Allergies/Adverse Reactions: Allergies Allergy/AdvReac Type Severity Reaction Status Date / Time No Known Allergies Allergy Unverified 04/22/19 06:50 Visit Medications: Current Medications Acetaminophen (Tylenol) 650 mg PO Q6H PRN PRN Reason: fever or pain Last Admin: 05/16/19 19:08 Dose: 650 mg Digoxin (Lanoxin) 0.25 mg PO DAILY [facility] Last Admin: 05/17/19 09:32 Dose: 0.25 mg Diphenhydramine HCl (Benadryl) 25 mg PO Q6H PRN PRN Reason: Itching & Insomnia Enoxaparin Sodium (Lovenox) 110 mg SC 1100,2300 [facility] Last Admin: 05/17/19 21:17 Dose: 110 mg Pantoprazole Sodium 80 mg/ (Sodium Chloride) 100 mls @ 10 mls/hr IVP INF [facility] Stop: 05/18/19 08:59 Last Admin: 05/18/19 02:17 Dose: 100 mls Metoprolol Tartrate (Lopressor) 25 mg PO BID [facility] Last Admin: 05/17/19 21:16 Dose: 25 mg Morphine Sulfate (Morphine) 4 mg SLOW IVP Q4H PRN PRN Reason: Moderate to Severe Pain (6-10) Last Admin: 05/18/19 04:01 Dose: 4 mg Ondansetron HCl (Zofran) 4 mg IVP Q6H PRN PRN Reason: Nausea/Vomiting Last Admin: 05/18/19 02:25 Dose: 4 mg Pantoprazole Sodium (Protonix) 40 mg PO BID [facility] Sodium Chloride (Flush - Normal Saline) 10 ml IVF PRN PRN PRN Reason: Saline Flush Tetrahydrozoline HCl (Visine Ac 0.05% Opth) 0 drop EA EYE PRN PRN PRN Reason: Dry Eyes Warfarin Sodium (Coumadin) 5 mg PO 1700 [facility] Vital Signs & Weight: Vital Signs Temp Pulse Resp BP BP Pulse Ox 05/18/19 07:01 99.2 F 76 18 137/66 95 05/18/19 03:35 98.0 F 69 18 120/69 94 L 05/17/19 21:11 99 F 74 17 138/86 96 Weight 260 lb 12.909 oz - Physical Exam General: alert & oriented x3 Neck: supple neck Cardiac: regular rate and rhythm, other (aortic valve click) Lungs: clear to auscultation Neuro: grossly intact Abdomen: soft Skin: clear - Labs Result Diagrams: 05/17/19 05:12 05/17/19 05:12 Troponin/CKMB CK-MB (CK-2) 1.2 ng/mL (0-6.6) 05/14/19 19:50 Troponin I 0.032 ng/mL (< 0.028) H 05/14/19 19:50 - Problem (1) Upper GI bleed Code(s): K92.2 - GASTROINTESTINAL HEMORRHAGE, UNSPECIFIED Assessment and Plan: Resolved Arm pain better On lovenox for valve Coumadin restarted INR 2-3 per pharmacy check CBC Ok to transfer to medical from CV standpoint (2) History of aortic valve replacement Code(s): Z95.2 - PRESENCE OF PROSTHETIC HEART VALVE Assessment and Plan: see above (3) ARIANNA (obstructive sleep apnea) Code(s): G47.33 - OBSTRUCTIVE SLEEP APNEA (ADULT) (PEDIATRIC) Assessment and Plan: OP study
[2019-05-18] MEDS: Metoprolol Tartrate 25 MG TAB PO SCH ×2 (08:37→20:27)
[2019-05-18] MEDS: Digoxin 0.25 MG TAB PO SCH (08:37)
[2019-05-18] MEDS: Enoxaparin Sodium 120 MG/0.8 ML SYRINGE SC SCH ×2 (11:38→22:09)
[2019-05-18 14:49] LABS: INR-International Normal Ratio 1.3; Prothrombin Time 16.2 SEC (12.0-14.7)
[2019-05-18] MEDS ORDERED: Warfarin Sodium 5 MG TAB PO SCH (17:00)
--- NOTE | 2019-05-18 19:23 | PDOC.HOSPP ---
- Subjective Encounter Date: 05/18/19 Encounter Time: 17:12 Subjective: 48 y/o malewith aortic stenosis s/p recent aortic valve replacement on anticoagulation with coumadin admitted due to gi bleeding associated with syncope. S/p EGD showing duodenal ulcer. Feeling better and back on anticoagulation. Several attempts today to get blood sample for lab were unsuccessful. - Objective Vital Signs & Weight: Vital Signs (12 hours) Temp Pulse Resp BP BP Pulse Ox 05/18/19 16:02 99.6 F 72 18 130/72 95 05/18/19 11:41 99.6 F 68 18 142/87 H 95 Weight Weight 260 lb 12.909 oz Most Recent Monitor Data Heart Rate from ECG 68 NIBP 145/90 NIBP BP-Mean 108 Respiration from ECG 23 SpO2 96 I&O: 05/17/19 05/18/19 05/19/19 06:59 06:59 06:59 Intake Total 3859 1900 1420 Output Total 4525 1200 Balance -905 966 2473 Result Diagrams: 05/17/19 05:12 05/17/19 05:12 Hospitalist ROS - Medication Medications: Active Medications Generic Name Dose Route Start Last Admin Trade Name Freq PRN Reason Stop Dose Admin Acetaminophen 650 mg 05/16/19 18:35 05/16/19 19:08 Tylenol PO 650 mg Q6H PRN Administration fever or pain Digoxin 0.25 mg 05/17/19 09:00 05/18/19 08:37 Lanoxin PO 0.25 mg DAILY MERLENE Administration Enoxaparin Sodium 110 mg 05/17/19 23:00 05/18/19 11:38 Lovenox SC 110 mg 1100,2300 MERLENE Administration Metoprolol Tartrate 25 mg 05/16/19 21:00 05/18/19 08:37 Lopressor PO 25 mg BID MERLENE Administration Morphine Sulfate 4 mg 05/15/19 00:40 05/18/19 04:01 Morphine SLOW IVP 4 mg Q4H PRN Administration Moderate to Severe Pain (6-10) Ondansetron HCl 4 mg 05/14/19 23:01 05/18/19 02:25 Zofran IVP 4 mg Q6H PRN Administration Nausea/Vomiting Pantoprazole Sodium 40 mg 05/18/19 09:00 05/18/19 08:37 Protonix PO 40 mg BID MERLENE Administration Warfarin Sodium 5 mg 05/18/19 17:00 05/18/19 17:28 Coumadin PO 5 mg 1700 MERLENE Administration - Exam General Appearance: awake alert General - other findings: heavy built Eye: anicteric sclera ENT: normocephalic atraumatic, moist mucosa Neck: supple Heart: RRR Respiratory: no rales Gastrointestinal: soft, non-tender, non-distended, normal bowel sounds Extremities: no cyanosis, no edema Neurological: cranial nerve grossly intact Musculoskeletal: generalized weakness Psychiatric: normal affect, A&O x 3 Hosp A/P (1) GI bleeding Code(s): K92.2 - GASTROINTESTINAL HEMORRHAGE, UNSPECIFIED Status: Acute (2) Duodenal ulcer Status: Acute (3) Anemia due to blood loss, acute Code(s): D62 - ACUTE POSTHEMORRHAGIC ANEMIA Status: Acute (4) Hypotension Status: Acute (5) Syncope Code(s): R55 - SYNCOPE AND COLLAPSE Status: Acute (6) History of aortic valve replacement Code(s): Z95.2 - PRESENCE OF PROSTHETIC HEART VALVE Status: Chronic (7) Severe aortic valve stenosis Code(s): I35.0 - NONRHEUMATIC AORTIC (VALVE) STENOSIS Status: Acute - Plan Continue anticoagulation Monitor H/H Continue PPI Get CBC, BMP and INR in the am.
[2019-05-18] MEDS: diphenhydrAMINE 25 MG CAP PO PRN (20:27)
--- NOTE | 2019-05-19 06:51 | PDOC.CPN ---
- Subjective Date: 05/19/19 Time: 07:45 Interval history: Doing well No complaints Would like to go home - Review of Systems Respiratory: reports: exercise intolerance - Objective Allergies/Adverse Reactions: Allergies Allergy/AdvReac Type Severity Reaction Status Date / Time No Known Allergies Allergy Unverified 04/22/19 06:50 Visit Medications: Current Medications Acetaminophen (Tylenol) 650 mg PO Q6H PRN PRN Reason: fever or pain Last Admin: 05/16/19 19:08 Dose: 650 mg Digoxin (Lanoxin) 0.25 mg PO DAILY [facility] Last Admin: 05/18/19 08:37 Dose: 0.25 mg Diphenhydramine HCl (Benadryl) 25 mg PO Q6H PRN PRN Reason: Itching & Insomnia Last Admin: 05/18/19 20:27 Dose: 25 mg Enoxaparin Sodium (Lovenox) 110 mg SC 1100,2300 [facility] Last Admin: 05/18/19 22:09 Dose: 110 mg Metoprolol Tartrate (Lopressor) 25 mg PO BID [facility] Last Admin: 05/18/19 20:27 Dose: 25 mg Morphine Sulfate (Morphine) 4 mg SLOW IVP Q4H PRN PRN Reason: Moderate to Severe Pain (6-10) Last Admin: 05/18/19 04:01 Dose: 4 mg Ondansetron HCl (Zofran) 4 mg IVP Q6H PRN PRN Reason: Nausea/Vomiting Last Admin: 05/18/19 02:25 Dose: 4 mg Pantoprazole Sodium (Protonix) 40 mg PO BID [facility] Last Admin: 05/18/19 20:27 Dose: 40 mg Sodium Chloride (Flush - Normal Saline) 10 ml IVF PRN PRN PRN Reason: Saline Flush Tetrahydrozoline HCl (Visine Ac 0.05% Opth) 0 drop EA EYE PRN PRN PRN Reason: Dry Eyes Warfarin Sodium (Coumadin) 5 mg PO 1700 [facility] Last Admin: 05/18/19 17:28 Dose: 5 mg Vital Signs & Weight: Vital Signs Temp Pulse Resp BP BP Pulse Ox 05/19/19 03:26 99.9 F H 69 18 119/72 97 05/18/19 20:18 99.9 F H 86 20 112/63 96 Weight 260 lb 12.909 oz - Physical Exam General: alert & oriented x3 Neck: supple neck Cardiac: no murmur, other (aortic valve click) Lungs: clear to auscultation Neuro: grossly intact Abdomen: active bowel sounds - Labs Result Diagrams: 05/17/19 05:12 05/17/19 05:12 Troponin/CKMB CK-MB (CK-2) 1.2 ng/mL (0-6.6) 05/14/19 19:50 Troponin I 0.032 ng/mL (< 0.028) H 05/14/19 19:50 - Problem (1) Upper GI bleed Code(s): K92.2 - GASTROINTESTINAL HEMORRHAGE, UNSPECIFIED Assessment and Plan: resolved ACT restarted (2) History of aortic valve replacement Code(s): Z95.2 - PRESENCE OF PROSTHETIC HEART VALVE Assessment and Plan: INR 2-3 Recommend pharmacy manage coumadin Pt states he can take lovenox at home till INR > 2 He will dicsuss with hopsitalist (3) ARIANNA (obstructive sleep apnea) Code(s): G47.33 - OBSTRUCTIVE SLEEP APNEA (ADULT) (PEDIATRIC) Assessment and Plan: outpt sleep study - Assessment/Plan Assessment/Plan: NO further recommendations FU in 1-2 weeks in office Reconsult if questions arise
[2019-05-19] MEDS: Digoxin 0.25 MG TAB PO SCH (09:08)
[2019-05-19] MEDS: Metoprolol Tartrate 25 MG TAB PO SCH ×2 (09:09→21:44)
[2019-05-19 09:46] LABS: INR-International Normal Ratio 1.2; Prothrombin Time 15.6 SEC (12.0-14.7)
[2019-05-19] MEDS: Enoxaparin Sodium 120 MG/0.8 ML SYRINGE SC SCH ×2 (11:57→21:45)
[2019-05-19 12:06] LABS: #Eosinphils 0.5 thou/uL (0.0-0.7); #Monocytes 0.7 thou/uL (0.11-0.59); #Neutrophils 5.3 thou/uL (1.40-6.50); %Basophils 0.4 % (0.0-1.0); %Eosinophils 5.7 % (0.0-10.0); %Lymphocytes 23.3 % (21.0-51.0); %Monocytes 8.1 % (0.0-10.0); %Neutrophils 62.5 % (42.0-75.0); Hemoglobin 8.3 g/dL (14.0-18.0); Mean Corpuscular HGB CONC 34.4 g/dL (32.0-36.0); Mean Corpuscular Hemoglobin 32.8 pg (27.0-31.0); Mean Corpuscular Volume 95.4 fL (78.0-98.0); Mean Platelet Volume 6.3 fL (7.4-10.4); Platelet Count 391 thou/uL (130-400); RBC Distribution Width 13.7 % (11.5-14.5); Red Blood Cell (RBC) Count 2.54 mill/uL (4.70-6.10); White Blood Cell (WBC) Count 8.5 thou/uL (4.8-10.8)
[2019-05-19 12:08] LABS: ALT (SGPT) 14 U/L (8-55); AST (SGOT) 13 U/L (5-34); Albumin 3.1 g/dL (3.5-5.0); Alkaline Phosphatase 51 U/L (40-150); Anion Gap 9 mmol/L (10-20); BUN (Urea Nitrogen) 16 mg/dL (8.9-20.6); Bilirubin, Total 0.2 mg/dL (0.2-1.2); Calc. Creatinine Clearance 156 mL/min (70-130); Calcium 8.3 mg/dL (7.8-10.44); Carbon Dioxide 28 mmol/L (22-29); Chloride 103 mmol/L (98-107); Estimated GFR-MDRD 84; Globulin 2.6 g/dL (2.4-3.5); Glucose 116 mg/dL (70-105); Potassium 3.8 mmol/L (3.5-5.1); Protein, Total 5.7 g/dL (6.0-8.3); Sodium 136 mmol/L (136-145)
[2019-05-19] MEDS ORDERED: Warfarin Sodium 7.5 MG TAB PO SCH (13:00)
--- NOTE | 2019-05-19 13:05 | PDOC.HOSPP ---
- Subjective Encounter Date: 05/19/19 Encounter Time: 13:01 Subjective: 48 y/o malewith aortic stenosis s/p recent aortic valve replacement on anticoagulation with coumadin admitted due to GI bleeding associated with syncope. S/p EGD showing duodenal ulcer. Feeling better and back on anticoagulation. Denied bloody stool. - Objective Vital Signs & Weight: Vital Signs (12 hours) Temp Pulse Resp BP BP Pulse Ox 05/19/19 12:00 98.0 F 73 20 114/83 94 L 05/19/19 09:08 80 05/19/19 08:00 98.2 F 80 17 136/80 95 05/19/19 03:26 99.9 F H 69 18 119/72 97 Weight Weight 260 lb 12.909 oz Most Recent Monitor Data Heart Rate from ECG 68 NIBP 145/90 NIBP BP-Mean 108 Respiration from ECG 23 SpO2 96 I&O: 05/18/19 05/19/19 05/20/19 06:59 06:59 06:59 Intake Total 1900 1900 Output Total 1200 600 Balance 700 1300 Result Diagrams: 05/19/19 11:57 05/19/19 09:25 Hospitalist ROS - Medication Medications: Active Medications Generic Name Dose Route Start Last Admin Trade Name Freq PRN Reason Stop Dose Admin Acetaminophen 650 mg 05/16/19 18:35 05/16/19 19:08 Tylenol PO 650 mg Q6H PRN Administration fever or pain Digoxin 0.25 mg 05/17/19 09:00 05/19/19 09:08 Lanoxin PO 0.25 mg DAILY MERLENE Administration Diphenhydramine HCl 25 mg 05/16/19 18:35 05/18/19 20:27 Benadryl PO 25 mg Q6H PRN Administration Itching & Insomnia Enoxaparin Sodium 110 mg 05/17/19 23:00 05/19/19 11:57 Lovenox SC 110 mg 1100,2300 MERLENE Administration Metoprolol Tartrate 25 mg 05/16/19 21:00 05/19/19 09:09 Lopressor PO 25 mg BID MERLENE Administration Morphine Sulfate 4 mg 05/15/19 00:40 05/18/19 04:01 Morphine SLOW IVP 4 mg Q4H PRN Administration Moderate to Severe Pain (6-10) Ondansetron HCl 4 mg 05/14/19 23:01 05/18/19 02:25 Zofran IVP 4 mg Q6H PRN Administration Nausea/Vomiting Pantoprazole Sodium 40 mg 05/18/19 09:00 05/19/19 09:09 Protonix PO 40 mg BID MERLENE Administration - Exam General Appearance: awake alert Eye: anicteric sclera ENT: normocephalic atraumatic Neck: supple, symmetric Heart: RRR, murmur present Respiratory: no wheezes, no rales, no ronchi, normal chest expansion Gastrointestinal: soft, non-tender, non-distended, normal bowel sounds Extremities: no cyanosis, no clubbing, no edema Neurological: cranial nerve grossly intact, no weakness, no focal deficits Musculoskeletal: normal tone, no muscle wasting Psychiatric: normal affect, A&O x 3 Hosp A/P (1) GI bleeding Code(s): K92.2 - GASTROINTESTINAL HEMORRHAGE, UNSPECIFIED Status: Acute (2) Duodenal ulcer Status: Acute (3) Anemia due to blood loss, acute Code(s): D62 - ACUTE POSTHEMORRHAGIC ANEMIA Status: Acute (4) Hypotension Status: Acute (5) Syncope Code(s): R55 - SYNCOPE AND COLLAPSE Status: Acute (6) History of aortic valve replacement Code(s): Z95.2 - PRESENCE OF PROSTHETIC HEART VALVE Status: Chronic (7) Severe aortic valve stenosis Code(s): I35.0 - NONRHEUMATIC AORTIC (VALVE) STENOSIS Status: Acute - Plan Hold discharge due to acute drop in Hb from 10 to 8 in 2 days despite no obvious bleeding. Continue anticoagulation; increase coumadin to 7.5 daily as INR is 1.2. Continue lovenox Continue H/H monitoring Continue PPI Get CBC and INR in the am. Care plan discussed with patient who verbalized understanding. possible discharge tomorrow if H/H is stable.
[2019-05-19 18:24] LABS: Hemoglobin 8.5 g/dL (14.0-18.0)
[2019-05-19] MEDS: diphenhydrAMINE 25 MG CAP PO PRN (21:45)
[2019-05-20 07:07] LABS: Hemoglobin 8.1 g/dL (14.0-18.0); Mean Corpuscular HGB CONC 33.8 g/dL (32.0-36.0); Mean Corpuscular Hemoglobin 32.4 pg (27.0-31.0); Mean Corpuscular Volume 95.8 fL (78.0-98.0); Mean Platelet Volume 6.5 fL (7.4-10.4); Platelet Count 416 thou/uL (130-400); RBC Distribution Width 13.9 % (11.5-14.5); Red Blood Cell (RBC) Count 2.51 mill/uL (4.70-6.10); White Blood Cell (WBC) Count 8.2 thou/uL (4.8-10.8)
[2019-05-20 07:17] LABS: INR-International Normal Ratio 1.2; Prothrombin Time 15.4 SEC (12.0-14.7)
[2019-05-20] MEDS: Metoprolol Tartrate 25 MG TAB PO SCH (08:42)
[2019-05-20] MEDS: Digoxin 0.25 MG TAB PO SCH (08:42)
[2019-05-20] MEDS: IRON SUCROSE COMPLEX IVPB SCH ×2 (10:11→14:03)
[2019-05-20] MEDS: SODIUM CHLORIDE 0.9% IVPB SCH ×2 (10:11→14:03)
[2019-05-20] MEDS: Enoxaparin Sodium 120 MG/0.8 ML SYRINGE SC SCH (12:26)
[2019-05-20 14:02] VITALS: BP 122/70; TEMP 97.9
--- NOTE | 2019-05-20 14:10 | PDOC.EVN ---
Event Note - Event Note Event Note: Discharge summary dictated. #[id number]
--- NOTE | 2019-05-20 14:11 | EKG ---
Test Reason : Blood Pressure : / mmHG Vent. Rate : 095 BPM Atrial Rate : 095 BPM P-R Int : 154 ms QRS Dur : 110 ms QT Int : 356 ms P-R-T Axes : 029 -44 055 degrees QTc Int : 447 ms Normal sinus rhythm Left axis deviation Abnormal ECG Confirmed by NADEGE NELSON ([id number]), assignment desk editor MARILIA BOYKIN ([id number]) on 05/20/2019 2:11:08 PM Referred By: Confirmed By:NADEGE NELSON
--- NOTE | 2019-05-20 14:11 | EKG ---
Test Reason : Blood Pressure : / mmHG Vent. Rate : 097 BPM Atrial Rate : 097 BPM P-R Int : 158 ms QRS Dur : 108 ms QT Int : 364 ms P-R-T Axes : 043 -42 060 degrees QTc Int : 462 ms Normal sinus rhythm Left axis deviation Abnormal ECG Confirmed by NADEGE NELSON ([id number]), editor magazine MARILIA BOYKIN ([id number]) on 05/20/2019 2:11:06 PM Referred By: Confirmed By:NADEGE NELSON
--- NOTE | 2019-05-20 14:33 | DIS ---
DATE OF ADMISSION: 05/14/2019 DATE OF DISCHARGE: 05/20/2019 PRIMARY CARE PHYSICIAN: Hali Bundy MD DISCHARGE DIAGNOSES: 1. Acute gastrointestinal hemorrhage. 2. Hemorrhagic shock. 3. Hypotension. 4. Acute blood loss anemia. 5. Syncope and collapse. 6. Severe aortic stenosis. 7. Status post recent aortic valve replacement. 8. Chronic anticoagulation with Coumadin. 9. Mechanical aortic valve replacement. CONSULTS: 1. Gastroenterology. 2. Cardiology. 3. Pulmonary and Critical Care. 4. Cardiovascular Surgery. PROCEDURES PERFORMED: 1. 4 units of packed red blood cell transfusion. 2. Esophagogastroduodenoscopy with control of hemorrhage. 3. Finding of EGD: 1-cm ulcer in the bulb of duodenum at the junction of the first and second portions of the duodenum on the inferior wall. This was treated with injection of epinephrine as well as cauterization of a visible vessel. HOSPITAL COURSE: A 48-year-old male with aortic stenosis due to bicuspid valve, status post recent mechanical aortic valve replacement on chronic anticoagulation with Coumadin, who was admitted due to acute GI bleeding associated with syncope and collapse. The patient was found to have hypotension, which was felt to be due to severe volume loss due to hemorrhage and was resuscitated with IV fluids. The patient also was started on Protonix infusion. With improvement in hemodynamics, the patient was taken to endoscopy suite and had upper endoscopy, which showed duodenal ulcer with bleeding visible vessel, which was injected with epinephrine and cauterized. The patient received a total of 4 packed red blood cells. Given that the patient had mechanical heart valves, anticoagulation with Lovenox was soon restarted while Coumadin also was restarted. The patient was monitored. There was a drop in hemoglobin from 10 post transfusion to 8, but subsequently hemoglobin stabilized around 8 with no overt evidence of bleeding. The patient remained hemodynamically stable and was subsequently discharged home to follow up at the [facility]. Of note, post EGD treatment of bleeding ulcer, the patient developed severe abdominal pain, which was concerning for perforation. However, CT scan of the abdomen performed was negative, and abdominal pain soon subsided. At the time of discharge, INR was still 1.2, hence Coumadin was increased to 7.5. The patient was instructed to follow up at the [facility] Clinic in 3 days for re-evaluation and recheck of INR. The patient is to continue Lovenox until INR is therapeutic. PHYSICAL EXAMINATION: VITAL SIGNS: Temperature 97.9, pulse 70, respiratory rate 18, SpO2 of 96% on room air, and blood pressure is 122/70. GENERAL: Healthy-looking male in no distress. Afebrile. Anicteric. Acyanotic. HEENT: Normocephalic, atraumatic. Oral mucosa is moist. CARDIOVASCULAR: Regular rhythm and rate with normal heart sounds 1 and 2. RESPIRATORY: Good air entry bilaterally with no crackle or rhonchi or use of accessory muscles. GASTROINTESTINAL: Full, soft, nontender, and nondistended with normal bowel sounds. EXTREMITIES: Grossly normal looking, atraumatic with no edema or erythema. CENTRAL NERVOUS SYSTEM: Conscious, alert, oriented x3 with appropriate mental status. DISCHARGE CONDITION: Improved and stable. DISCHARGE DISPOSITION: Home. DISCHARGE MEDICATIONS: See discharge med rec. Pertinent are; 1. Coumadin 7.5 mg p.o. daily. 2. Lovenox 110 mg b.i.d. 3. Protonix 40 mg p.o. b.i.d. FOLLOW UP: 1. Follow up with Coumadin Clinic in 3 days. The patient also is to follow up with Dr. Oscar Stone, GI, on June 19. He is, however, to continue with Protonix 40 b.i.d. till then. 2. Follow up with Dr. Nick in 14 days. 3. Follow with Dr. Oscar Webber, Cardiothoracic Surgery on May 24. 4. Follow up with PCP in 7 days. TIME SPENT: This discharge took more than 36 minutes. Job ID: [id number]
--- NOTE | 2019-05-23 07:05 | PQF ---
SAP Record Searcher Crystal Reports Winform ViewerMCKAYLA RICO MOHAMED S MD [id number] [facility] [id number] CLINICAL DOCUMENTATION CLARIFICATION FORM: POST DISCHARGE Addendum to original discharge summary date: ____ Late entry note date: __ DATE: 05/23/19 ATTN: Ntaacha Schneider Please exercise your independent, professional judgment in responding to the clarification form. Clinical indicators are provided on the bottom of this form for your review Kindly clarfy regarding myocardial infarction Please check appropriate box(s) to clarify if the following diagnosis has been ruled in or ruled out: Type 2 myocardial infarction [ ] Ruled in diagnosis [ ] Continue to treat [ ] Resolved [ ] Ruled out diagnosis [ ] Cannot rule out diagnosis [ ] Other diagnosis [ ] Unable to determine In addition, please specify: Present on Admission (POA): [ ] Yes [ ] No [ ] Unable to determine For continuity of documentation, please document condition throughout progress notes and discharge summary. Thank You. CLINICAL INDICATORS - SIGNS / SYMPTOMS / LABS Type 2 myocardial infraction, status acute - Hospitalist progress note dated by Dr. Vargas [facility] documents myocardial infarction - H and P RISK FACTORS CAD - H and P Recent aortic valve replacement - H and P TREATMENTS IV metoprolol from 05/16 to 05/20 - Medications (This form is maintained as a part of the permanent medical record) 2014 [employer]. All Rights Reserved [employer] Record Searcher Crystal Reports Winform [email or web address] [email or web address] [phone] [email or web address]
== END 2019-05-20 15:15 | disposition home or self-care (01) | DRG 377 ==
LOC: ERS 19:20 → SDC/OP 22:09 → CCU 22:56 → 2NO 05-17 06:44
PROVIDERS: ADMIT Internal Medicine; ATTEND Internal Medicine
PROC: 0W3P8ZZ Control Bleeding in Gastrointestinal Tract, Via Natural or Artificial Opening Endoscopic (ICD-10-PCS; principal; 2019-05-14)
PROC: 30233N1 Transfusion of Nonautologous Red Blood Cells into Peripheral Vein, Percutaneous Approach (ICD-10-PCS; 2019-05-14)
DX: K26.4 Chronic or unspecified duodenal ulcer with hemorrhage (principal); R57.8 Other shock; D62 Acute posthemorrhagic anemia; I48.92 Unspecified atrial flutter; I10 Essential (primary) hypertension; I25.10 Atherosclerotic heart disease of native coronary artery without angina pectoris; G47.33 Obstructive sleep apnea (adult) (pediatric); E66.9 Obesity, unspecified; R55 Syncope and collapse; Z95.2 Presence of prosthetic heart valve; Z79.01 Long term (current) use of anticoagulants; Z68.38 Body mass index [BMI] 38.0-38.9, adult; I25.2 Old myocardial infarction; T78.49XA Other allergy, initial encounter
CPT/HCPCS: 36415; 36430; 70450; 71045; 74176; 80048; 80053; 82274; 82553; 83880; 84484; 85025; 85027; 85610; 85730; 86850; 86900; 86901; 87338; 93005; 96361; 96374; 96375; 96376; C9113; J0171; J1200; J1650; J1756; J2001; J2270; J2405; J2543; J2704; J3010; J3490; J7050; P9016; Q0163

== ENCOUNTER 2020-07-19 06:23 | Outpatient (CLI) | payer BC ==
[2020-07-19 09:51] LABS: #Eosinphils 0.2 10x3/uL (0.0-0.5); #Monocytes 0.4 10x3/uL (0.0-1.1); #Neutrophils 3.6 10x3/uL (1.5-8.4); %Basophils 0.5 % (0.0-2.0); %Eosinophils 2.7 % (0.0-6.0); %Lymphocytes 26.6 % (18.0-47.0); %Monocytes 7.6 % (0.0-10.0); %Neutrophils 62.3 % (40.0-75.0); Mean Corpuscular HGB CONC 33.3 G/DL (32.0-36.0); Mean Corpuscular Hemoglobin 31.5 PG (27.0-33.0); Mean Corpuscular Volume 94.6 fl (80.0-100.0); Platelet Count 291 10x3/uL (130-400); Red Blood Cell (RBC) Count 4.45 10x6/uL (4.40-5.80); White Blood Cell (WBC) Count 5.8 10x3/uL (4.5-11.0)
[2020-07-19 10:13] LABS: Anion Gap 15 mmol/L (10-20); BUN (Urea Nitrogen) 24 mg/dL (8.4-25.7); Calc. Creatinine Clearance 0 mL/min (70-130); Calcium 8.7 mg/dL (7.8-10.44); Carbon Dioxide 24 mmol/L (22-29); Chloride 105 mmol/L (98-107); Estimated GFR-MDRD 64; Glucose 97 mg/dL (70-105); Potassium 4.8 mmol/L (3.5-5.1); Sodium 139 mmol/L (136-145)
[2020-07-19 17:56] LABS: SARS-CoV-2 MS2 Positive; SARS-CoV-2 N Gene Negative; SARS-CoV-2 S Gene Negative; SARS-CoV-2 by NAA Not Detected (NotDetected); SARS-CoV-2 orf1ab Negative
== END 2020-07-19 06:24 | disposition home or self-care (01) ==
LOC: LABBT 06:23
PROVIDERS: ATTEND Internal Medicine Cardiovascular Disease
DX: Z01.812 Encounter for preprocedural laboratory examination (principal); R93.1 Abnormal findings on diagnostic imaging of heart and coronary circulation; Z20.828 Contact with and (suspected) exposure to other viral communicable diseases
CPT/HCPCS: 36415; 80048; 85025; 87040; 87635; U0003

== ENCOUNTER 2020-07-22 10:21 | Day surgery (SDC) | payer BC ==
[2020-07-19 12:16] VITALS: BMI 32.3
[2020-07-22] MEDS ORDERED: PROPOFOL 200 MG/20 ML VIAL ONE (10:51)
[2020-07-22] MEDS ORDERED: Lidocaine 1% PF 5 ML VIAL ONE (10:51)
--- NOTE | 2020-07-31 14:47 | OP ---
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 POSTPROCEDURE DIAGNOSIS: No significant mass present. PROCEDURE PERFORMED: Transesophageal echocardiogram. The patient was consented for the procedure. I discussed the procedure in full detail with Mr. Stone. Risks include, but not limited to the following: Damage to teeth, mouth, back of throat; damage to esophagus as well as reaction to medication. All questions were answered. Given the above, the patient agreed to proceed with above procedure. FINDINGS: Overall left ventricular ejection fraction was estimated 50% to 55%. The mitral valve has 2 leaflets. No mass or vegetation present. The left atrium is free of vegetations. The aortic valve was well visualized. There is a mechanical aortic valve present in the aortic position. There are no masses or vegetations present. There is reverberation likely representing findings on previous echo. The tricuspid valve is free of significant vegetation or masses. Right atrium and right ventricle appear normal. IMPRESSION: No significant mass or vegetation present. Job ID: [id number]
== END 2020-07-22 14:33 | disposition home or self-care (01) ==
LOC: CCL 10:21
PROVIDERS: ATTEND Internal Medicine Cardiovascular Disease
PROC: B245ZZ4 Ultrasonography of Left Heart, Transesophageal (ICD-10-PCS; principal; 2020-07-22)
DX: R93.1 Abnormal findings on diagnostic imaging of heart and coronary circulation (principal); I48.0 Paroxysmal atrial fibrillation; I10 Essential (primary) hypertension; I25.2 Old myocardial infarction; Z79.01 Long term (current) use of anticoagulants; Z79.899 Other long term (current) drug therapy; Z95.2 Presence of prosthetic heart valve
CPT/HCPCS: 93312; J2704

== ENCOUNTER 2021-10-09 10:58 | Outpatient (CLI) | payer BC ==
[~2021-10-09 10:58] MED LIST changes: -EPINEPHrine 1 MG/10 ML Abboject SYRINGE ONE; +Iopamidol 370 76% 100 ML VIAL ONE; -Lidocaine 1% PF 5 ML VIAL ONE; -Ondansetron PF 4 MG/2 ML Vial ONE; -PROPOFOL 200 MG/20 ML VIAL ONE
== END 2021-10-09 10:59 | disposition home or self-care (01) ==
LOC: CT 10:58
PROVIDERS: ATTEND Internal Medicine Cardiovascular Disease
DX: I71.2 Thoracic aortic aneurysm, without rupture (principal)
CPT/HCPCS: 71275